=== PATIENT | male | born 1950 | race Caucasian/White ===

== ENCOUNTER 2016-05-10 16:53 | Inpatient (IN) | payer OTHER, MEDICARE ==
[~2016-05-10] VITALS: Ht 165.1 cm; Wt 112.7 kg
[~2016-05-10 16:53] MED LIST: 1-ME1LIQ PO; ALPR0.5T3 PO; ASPI1POW PO; ATOR40TA PO; CITA20TA4 PO; CLON.1 PO; DOXA1TAB65 PO; FLUT50SP EACH NARE; GLIP1TAB18 PO; GLUC1000 PO; HYDR-3129 PO; LEVEMIR SQ; LOSA100T PO; MAGN400 PO; MEDR4PAK3 PO; MORP30SU PO; NEUR800T PO; NITR0.4S SL; PLAV75TA PO; POTA10IN2 PO; PRIL40CA PO; TEMA15 PO
[2016-05-10] MEDS ORDERED: SODIUM CHLORIDE 0.9% FLUSH 10 ML FLUSH IVF PRN (17:15)
[2016-05-10] MEDS ORDERED: SODIUM CHLORID 0.9% 500 ML INJ 500 ML IV ONE (17:15)
--- NOTE | 2016-05-10 17:42 | PD ---
HPI Chief Complaint: syncope Time Seen by Provider: 17:03 Travel History International Travel<30 days: No Contact w/Intl Traveler<30days: No Traveled to known affect area: No History of Present Illness HPI And 65-year-old male came to the emergency room brought by EMS after syncopal episode at the [facility]. Patient says that he has been feeling weak for past few days. Today went to see his doctor the [facility] and was barely able to make it to the nurse's desk when he passed out. His blood pressure was 60 systolic. When EMS arrived he was awake and answering questions but the blood pressure was low. They gave him about 500 cc of IV fluid bolus and just prior to coming to the ER the blood pressure was 105 systolic. No history of chest pain or headache. Patient denies hitting his head. Patient says he has history of lower back pain in his lower back is currently hurting. He also had a stress test done last week by his asset administrator Dr. Pedroza and failed his stress test. He is scheduled for a cardiac catheterization tomorrow. [facility] Past Medical History Narrative Medical List of his past medical, surgical, social and family history was reviewed from the nursing note. Arthritis: Yes (R ankle, R knee, R shoulder, lower back, and neck) Asthma: No Blood Disorders: No Anxiety: Yes (Was taking Xanax (but not for last 3 weeks)) Depression: Yes Heart Rhythm Problems: No Cancer: No Cardiac Catheterization: Yes Cardiovascular Problems: Yes High Cholesterol: Yes Chest Pain: No Congestive Heart Failure: No COPD: No Cerebrovascular Accident: Yes Coronary Artery Disease: Yes Diabetes: Yes Diminished Hearing: No Endocrine: Yes Gastrointestinal Disorders: No GERD: No Glaucoma: No Genitourinary: Yes Hepatitis: No Hiatal Hernia: No Hypertension: Yes Immune Disorder: No Implanted Vascular Access Dvce: Yes Kidney Stones: Yes (Kidney stones in the 80's) Musculoskeletal: Yes Neurologic: No Psychiatric: Yes Reproductive: No Respiratory: Yes Integumentary: No Immunizations Current: Yes Myocardial Infarction: Yes Renal Failure: No Sleep Apnea: Yes (has Bipap but does not wear it) Thyroid Disease: No Ulcer: Yes (Stomach ulcer (in the 80's)) Past Surgical History Abdominal Surgery: Yes (Part of liver removed, HERNIA) Body Medical Devices: Stents 2008, 2014 LAD Cardiac Surgery: Yes Cholecystectomy: Yes Coronary Stent: Yes (X5) Ear Surgery: No Endocrine Surgery: No Eye Surgery: No Genitourinary Surgery: No Gynecologic Surgery: No Oral Surgery: No Thoracic Surgery: No Other Surgery: Yes Social History Alcohol Use: Yes (OCC BEER) Tobacco Use: No Substance Use: No Allergies-Medications (Allergen,Severity, Reaction): Coded Allergies: Onion (Verified Allergy, Severe, 06/15/15) Lisinopril (Verified Adverse Reaction, Severe, cough, 06/15/15) Comments List of his allergies reviewed from the nursing note. Reported Meds & Prescriptions Reported Meds & Active Scripts Active Reported Glipizide ER (Glipizide) 5 Mg Beth 5 Mg PO AC DINNER Take with breakfast or first main meal of the day. Bc Fast Pain Relief Powder (Jsjwjaa-Tkmqqxxogrhz-Byfzvsse Powder) 650-195-33.3 Mg Powderpack 1 Pkt PO DAILY Levemir Inj (Insulin Detemir) 1,000 unit/ 10 ML Vial 40 Units SQ HS Do not mix with any other Insulin. Humalog Inj (Insulin Human Lispro) 1,000 Unit/10 Ml Vial 10 Units SQ ACHS PRN Flonase Nasal [place] (Fluticasone Nasal [place]) 50 Mcg/Act [place] 1 [place] EACH NARE BID PRN Metformin (Metformin HCl) 1,000 Mg Tab 1,000 Mg PO BIDPC With meals Potassium Chloride Microencaps 10 Meq Tab 10 Meq PO TID Lasix (Furosemide) 80 Mg Tab 80 Mg PO AC BREAKFAST Bumex (Bumetanide) 2 Mg Tab 2 Mg PO BID Coreg (Carvedilol) 6.25 Mg Tab 6.25 Mg PO BID Atorvastatin (Atorvastatin Calcium) 40 Mg Tab 40 Mg PO HS Alprazolam 0.5 Mg Tab 0.5 Mg PO BID PRN Clonidine (Clonidine HCl) 0.1 Mg Tab 0.1 Mg PO TID Amlodipine (Amlodipine Besylate) 10 Mg Tab 10 Mg PO HS Citalopram (Citalopram Hydrobromide) 20 Mg Tab 20 Mg PO HS Plavix (Clopidogrel Bisulfate) 75 Mg Tab 75 Mg PO HS Doxazosin (Doxazosin Mesylate) 2 Mg Tab 2 Mg PO HS Gabapentin 800 Mg Tab 800 Mg PO TID [place] (Hydrocodone-Acetaminophen) 10-325 Mg Tab 1 Tab PO QID PRN Losartan (Losartan Potassium) 100 Mg Tab 100 Mg PO HS Nitroglycerin SL (Nitroglycerin) 0.4 Mg Subl 0.4 Mg SL DIRECTED PRN ONE TABLET UNDER THE TONGUE NEEDED FOR CHEST PAIN, MAY REPEAT EVERY FIVE MINUTES FOR A TOTAL OF 3 DOSES OR CALL 911 IF NO RELIEF Omeprazole 40 Mg Cap 40 Mg PO HS Restoril (Temazepam) 30 Mg Cap 30 Mg PO HS PRN Voltaren Topical (Diclofenac Topical) 1% Gel 1 Applic TOPICAL DAILY PRN Ms Contin (Morphine Sulfate) 30 Mg Tab 30 Mg PO Q8H Donepezil 5 Mg Tab 5 Mg PO HS Lasix (Furosemide) 40 Mg Tab 40 Mg PO AC LUNCH Narrative Medication List of his home medications reviewed from the nursing note. Review of Systems Except as stated in HPI: all other systems reviewed are Neg Physical Exam Narrative GENERAL: Awake, alert, obese, moderate distress SKIN: Focused skin assessment warm/dry. Pale HEAD: Atraumatic. Normocephalic. EYES: Pupils equal and round. No scleral icterus. No injection or drainage. ENT: No nasal bleeding or discharge. Mucous membranes pink and moist. NECK: Trachea midline. No JVD. CARDIOVASCULAR: Regular rate and rhythm. No murmur appreciated. RESPIRATORY: No accessory muscle use. Clear to auscultation. Breath sounds equal bilaterally. GASTROINTESTINAL: Abdomen soft, non-tender, nondistended. Hepatic and splenic margins not palpable. MUSCULOSKELETAL: No obvious deformities. No clubbing. No cyanosis. No edema. NEUROLOGICAL: Awake and alert. No obvious cranial nerve deficits. Motor grossly within normal limits. Normal speech. PSYCHIATRIC: Appropriate mood and affect; insight and judgment normal. Data Data Last Documented VS Vital Signs Date Time Temp Pulse Resp B/P Pulse Ox O2 Delivery O2 Flow Rate FiO2 05/10/16 18:04 66 18 95 Nasal Cannula 2 05/10/16 18:04 104/58 05/10/16 18:01 98.1 Orders Electrocardiogram (05/10/16 17:03) Basic Metabolic Panel (Bmp) (05/10/16 17:03) Ckmb (Isoenzyme) Profile (05/10/16 17:03) Complete Blood Count With Diff (05/10/16 17:03) Magnesium (Mg) (05/10/16 17:03) Prothrombin Time / Inr (Pt) (05/10/16 17:03) Act Partial Throm Time (Ptt) (05/10/16 17:03) Troponin I (05/10/16 17:03) Chest, Single Ap (05/10/16 17:03) Ecg Monitoring (05/10/16 17:03) Bilateral Bp Monitoring (05/10/16 17:03) Iv Access Insert/Monitor (05/10/16 17:03) Oximetry (05/10/16 17:03) Oxygen Administration (05/10/16 17:03) Sodium Chloride 0.9% Flush (Ns Flush) (05/10/16 17:15) Ct Abd/Pel W/O Iv Contrast (05/10/16 ) Sodium Chlorid 0.9% 500 Ml Inj (Ns 500 M (05/10/16 17:15) Ct Brain W/O Iv Contrast(Rout) (05/10/16 ) Urinalysis - C+S If Indicated (05/10/16 17:03) Admit Order (Ed Use Only) (05/10/16 18:40) Labs Laboratory Tests Test 05/10/16 17:10 White Blood Count 10.5 TH/MM3 Red Blood Count 3.49 MIL/MM3 Hemoglobin 9.9 GM/DL Hematocrit 29.2 % Mean Corpuscular Volume 83.5 FL Mean Corpuscular Hemoglobin 28.4 PG Mean Corpuscular Hemoglobin 34.1 % Concent Red Cell Distribution Width 17.3 % Platelet Count 233 TH/MM3 Mean Platelet Volume 8.6 FL Neutrophils (%) (Auto) 67.5 % Lymphocytes (%) (Auto) 15.7 % Monocytes (%) (Auto) 8.0 % Eosinophils (%) (Auto) 8.1 % Basophils (%) (Auto) 0.7 % Neutrophils # (Auto) 7.1 TH/MM3 Lymphocytes # (Auto) 1.6 TH/MM3 Monocytes # (Auto) 0.8 TH/MM3 Eosinophils # (Auto) 0.9 TH/MM3 Basophils # (Auto) 0.1 TH/MM3 CBC Comment DIFF FINAL Differential Comment Prothrombin Time 10.7 SEC Prothromb Time International 1.0 RATIO Ratio Activated Partial 22.6 SEC Thromboplast Time Sodium Level 140 MEQ/L Potassium Level 3.6 MEQ/L Chloride Level 100 MEQ/L Carbon Dioxide Level 29.9 MEQ/L Anion Gap 10 MEQ/L Blood Urea Nitrogen 20 MG/DL Creatinine 1.76 MG/DL Estimat Glomerular Filtration 39 ML/MIN Rate Random Glucose 67 MG/DL Calcium Level 7.8 MG/DL Magnesium Level 1.1 MG/DL Total Creatine Kinase 99 U/L Troponin I LESS THAN 0.02 NG/ML MDM Medical Decision Making Medical Screen Exam Complete: Yes Emergency Medical Condition: Yes Medical Record Reviewed: Yes Interpretation(s) Twelve-lead EKG was reviewed by me. Normal sinus rhythm, left axis deviation, right bundle branch block, PVC. Heart rate of 68 bpm. Differential Diagnosis Intracranial bleed, arrhythmia, AAA, Narrative Course 6:45 PM blood test results of back and within acceptable limit except for his hemoglobin and hematocrit which is slightly low. CAT scan of his abdomen and head are within normal limits. I would like to admit him for syncope. I discussed this with the hospitalist was accepted the case. Procedures EKG Prior to Arrival: No Diagnosis Primary Impression: Syncope and collapse Admitting Information Admitting Physician Requests: Admit Eder Carmen MD May 10, 2016 17:42
[2016-05-10 17:43] LABS: AUTOMATED NEUTROPHIL # 7.1 TH/MM3 (1.8-7.7); BASOPHIL # 0.1 TH/MM3 (0-0.2); BASOPHIL % 0.7 % (0.0-2.0); EOSINOPHIL # 0.9 TH/MM3 (0-0.4); EOSINOPHIL % 8.1 % (0.0-4.0); HEMATOCRIT 29.2 % (39.0-51.0); HEMO FLAGS DIFF FINAL; LYMPH % 15.7 % (9.0-44.0); LYMPHOCYTE # 1.6 TH/MM3 (1.0-4.8); MEAN CELL VOLUME 83.5 FL (80.0-100.0); MEAN CORPUSCULAR HEMOGLOBIN 28.4 PG (27.0-34.0); MEAN CORPUSCULAR HGB CONC 34.1 % (32.0-36.0); NEUT % 67.5 % (16.0-70.0); PLATELET COUNT 233 TH/MM3 (150-450); RED BLOOD COUNT 3.49 MIL/MM3 (4.50-5.90); RED CELL DISTRIBUTION WIDTH 17.3 % (11.6-17.2); WHITE BLOOD COUNT 10.5 TH/MM3 (4.0-11.0)
--- NOTE | 2016-05-10 17:47 | RADRPT ---
EXAM DATE/TIME: 05/10/2016 17:12 [facility] COMPARISON: CHEST SINGLE AP, June 15, 2015, 21:42. INDICATIONS : Chest pain. MEDICAL HISTORY : Cerebrovascular disease. SURGICAL HISTORY : Cardiac stents placement ENCOUNTER: Initial ACUITY: 1 day PAIN SCORE: 6/10 LOCATION: Bilateral chest FINDINGS: A single view of the chest demonstrates the lungs to be symmetrically aerated without evidence of mas s, infiltrate or effusion. The cardiomediastinal contours are unremarkable. Osseous structures are intact. CONCLUSION: 1. The pulmonary parenchyma is clear. Exam is stable compared to previous. Santos Allen MD on May 10, 2016 at 17:44 Board Certified Radiologist. This report was verified electronically.
[2016-05-10 17:57] LABS: APTT (PATIENT) 22.6 SEC (24.3-30.1); PROTHROMBIN TIME - PATIENT 10.7 SEC (9.8-11.6)
[2016-05-10] MEDS ORDERED: METO100T PO (17:57)
[2016-05-10] MEDS ORDERED: FURO1TAB60 PO (17:57)
[2016-05-10] MEDS ORDERED: HYDR-3366 PO (17:57)
[2016-05-10] MEDS ORDERED: CITA20TA4 PO (17:57)
[2016-05-10] MEDS ORDERED: DICL1GEL TOPICAL (17:57)
[2016-05-10] MEDS ORDERED: MS C30TA PO (17:57)
[2016-05-10] MEDS ORDERED: NITR1SUB3 SL (17:57)
[2016-05-10] MEDS ORDERED: GABA800T PO (17:57)
[2016-05-10] MEDS ORDERED: CLON.1T T-DERMAL (17:57)
[2016-05-10] MEDS ORDERED: DOXA1TAB35 PO (17:57)
[2016-05-10] MEDS ORDERED: LOSA100T PO (17:57)
[2016-05-10] MEDS ORDERED: DONE5TAB7 PO (17:57)
[2016-05-10] MEDS ORDERED: OMEP40CA2 PO (17:57)
[2016-05-10] MEDS ORDERED: AMLO10TA2 PO (17:57)
[2016-05-10] MEDS ORDERED: PLAV75TA29 PO (17:57)
[2016-05-10] MEDS ORDERED: REST30CA PO (17:57)
[2016-05-10 18:01] VITALS: BP 102/57; PULSE 67; RESP 18; TEMP 98.1; O2SAT 90
[2016-05-10 18:04] VITALS: BP 104/58; PULSE 67; RESP 18; O2SAT 95; O2SAT 97
[2016-05-10] MEDS ORDERED: ALPR0.5T3 PO (18:12)
[2016-05-10] MEDS ORDERED: CLON0.1T PO (18:12)
[2016-05-10 18:15] LABS: ANION GAP 10 MEQ/L (5-15); BICARBONATE 29.9 MEQ/L (21.0-32.0); BLOOD UREA NITROGEN 20 MG/DL (7-18); CHLORIDE 100 MEQ/L (98-107); GLOMERULAR FILTRATION RATE 39 ML/MIN (>89); MAGNESIUM 1.1 MG/DL (1.5-2.5); POTASSIUM 3.6 MEQ/L (3.5-5.1); SODIUM (NA) 140 MEQ/L (136-145)
[2016-05-10 18:18] LABS: CREATINE KINASE 99 U/L (39-308)
--- NOTE | 2016-05-10 18:18 | RADRPT ---
EXAM DATE/TIME: 05/10/2016 17:44 [facility] COMPARISON: CT BRAIN W/O CONTRAST, May 06, 2015, 2:57. INDICATIONS : Syncope. RADIATION DOSE: 52.56 CTDIvol (mGy) MEDICAL HISTORY : Cardiovascular disease. Cerebrovascular disease. Hypertension. SURGICAL HISTORY : Cholecystectomy. ENCOUNTER: Initial ACUITY: 1 day PAIN SCALE: 0/10 LOCATION: cranial TECHNIQUE: Multiple contiguous axial images were obtained of the head. Using automated exposure control and adj ustment of the mA and/or kV according to patient size, radiation dose was kept as low as reasonably a chievable to obtain optimal diagnostic quality images. FINDINGS: There is no evidence for intracranial hemorrhage, mass effect, mass lesions, edema, or extra-axial fl uid collections. The visualized bony structures appear intact. The ventricles are normal size for t he patient's age. There are no signs of acute infarction for technique. CONCLUSION: Unremarkable study. Colt Pedersen MD on May 10, 2016 at 18:15 Board Certified Radiologist. This report was verified electronically.
[2016-05-10] MEDS ORDERED: FURO1TAB61 PO (18:23)
[2016-05-10] MEDS ORDERED: ATOR40TA16 PO (18:23)
[2016-05-10] MEDS ORDERED: BUME1TAB28 PO (18:23)
[2016-05-10] MEDS ORDERED: CARV6.25 PO (18:23)
--- NOTE | 2016-05-10 18:24 | RADRPT ---
EXAM DATE/TIME: 05/10/2016 17:47 [facility] COMPARISON: No previous studies available for comparison. INDICATIONS : Abdomen pain. ORAL CONTRAST: No oral contrast ingested. RADIATION DOSE: 26.06 CTDIvol (mGy) MEDICAL HISTORY : Cardiovascular disease. Cerebrovascular disease. Hypertension. SURGICAL HISTORY : Cholecystectomy. ENCOUNTER: Initial ACUITY: 1 day PAIN SCALE: 6/10 LOCATION: Bilateral abdomen TECHNIQUE: Volumetric scanning of the abdomen and pelvis was performed. Using automated exposure control and ad justment of the mA and/or kV according to patient size, radiation dose was kept as low as reasonably achievable to obtain optimal diagnostic quality images. FINDINGS: CT Abdomen: The liver, spleen, pancreas, kidneys, left adrenal are unremarkable. Approximate 1.1 cm n odule is present in the right adrenal gland most likely an adenoma low attenuating. Coronary artery c alcifications are seen typically seen with CAD and need to be evaluated clinically. Evidence for prio r granulomatous exposure with calcified granulomas in the liver and spleen. There is no evidence for any appreciable pathological adenopathy, free fluid, or bowel obstruction. Chronic vascular calcific ations are present involving the aorta, iliac arteries without any significant stenosis or aneurysmal dilatations for technique. There is evidence for prior cholecystectomy. CT pelvis: There is no evidence for mass, abscess formation, or any significant adenopathy within the pelvis. The prostate gland is inhomogeneous and measures 5.2 x 5.4 cm in AP and transverse diameters and nonspecific. There is moderate amount of stool throughout the colon. Approximate 1.8 cm lymph no de is present in the right external iliac chain most likely benign. There is an approximate 6.2 cm li lottie in the inner thigh on the right. CONCLUSION: 1. Right adrenal nodule most likely an adenoma. 2. Lipoma in the inner thigh on the right. Colt Pedersen MD on May 10, 2016 at 18:16 Board Certified Radiologist. This report was verified electronically.
[2016-05-10] MEDS ORDERED: METF1000 PO (18:27)
[2016-05-10] MEDS ORDERED: POTA10TA38 PO (18:27)
[2016-05-10] MEDS ORDERED: LEVEMIR SQ (18:30)
[2016-05-10] MEDS ORDERED: FLUT1SPR5 EACH NARE (18:30)
[2016-05-10] MEDS ORDERED: HUMALOG SQ (18:30)
[2016-05-10] MEDS ORDERED: BC FPOW12 PO (18:31)
[2016-05-10] MEDS ORDERED: GLIP1TAB49 PO (18:33)
[2016-05-10] MEDS ORDERED: NALOXONE HCL 0.4 MG/ML AMP IV PRN (19:00)
[2016-05-10] MEDS ORDERED: ACETAMINOPHEN 325 MG TAB PO PRN (19:00)
[2016-05-10] MEDS ORDERED: SODIUM CHLOR 0.9% 1000 ML INJ 1,000 ML IV SCH (19:00)
[2016-05-10 19:30] VITALS: BP 107/56; PULSE 69; RESP 18; O2SAT 96
[2016-05-10] MEDS ORDERED: MAGNESIUM SULFATE 1 GM PREMIX 100 ML IV ONE (21:00)
[2016-05-10] MEDS: SODIUM CHLORIDE 0.9% FLUSH 10 ML FLUSH IV FLUSH SCH (21:00)
[2016-05-10 21:10] VITALS: BP 120/58; PULSE 66; RESP 18; O2SAT 97
[2016-05-10] MEDS: MORPHINE SULFATE 4 MG/ML INJ IV PUSH PRN (21:16)
[2016-05-10] MEDS ORDERED: DEXTROSE 50% IN WATER 50 ML VIAL(D50) IV PUSH PRN (21:45)
[2016-05-10] MEDS ORDERED: GLUCAGON 1 MG/ML VIAL OTHER PRN (21:45)
[2016-05-10 21:48] LABS: BLOOD, URINE NEG (NEG); COMMENT (UR) CULT NOT INDICATED; CULTURE IF INDICATED CULT NOT INDICATED; GLUCOSE,URINE NEG (NEG); HYALINE CAST, URINE 4 /lpf (RARE); KETONE, URINE NEG (NEG); NITRITE,URINE NEG (NEG); SQUAMOUS EPITHELIAL CELL URINE <1 /hpf (0-5); URINE COLOR LIGHT-YELLOW (YELLW/STRAW)
[2016-05-10 22:46] VITALS: BP 115/63; PULSE 69; RESP 20; TEMP 97.4; O2SAT 95
[2016-05-11] VITALS (8 sets, daily range): BP systolic 84–171; BP diastolic 58–85; PULSE 72–98; RESP 18–20; TEMP 97.5–98.4; O2SAT 92–100
--- NOTE | 2016-05-11 00:02 | HHI.HP ---
[facility] [place] [place] Physician Wali Pinon M.D. Admission Diagnosis syncope, hypotension Diagnoses: (1) Syncope and collapse (2) Anemia (3) Hypomagnesemia (4) Diabetes mellitus, type 2 (5) Renal insufficiency Chief Complaint: Dizziness and near syncope Travel History International Travel<30 Days: No Contact w/Intl Traveler <30 Da: No Traveled to Known Affected Are: No History of Present Illness Late entry on 05/11/2016 at 0002 for a visit done on 05/10/2016 at 2347. Mr. Bui is a 65 year-old male with a history of CAD with angioplasty and coronary stents, [place], morbid obesity, anxiety, depression, peptic ulcer disease, CVA, AGUSTIN, diabetes mellitus, hypertension, nephrolithiasis, dyslipidemia, osteoarthritis, chronic low back pain, insomnia, and mild memory impairment who underwent a recent nuclear stress test showing significant inferolateral ischemia and came to the hospital for evaluation after a syncopal episode at the [place] clinic 05/10/2016. He is scheduled to have outpatient cardiac catheterization by Dr. Pedroza tomorrow, 05/11/2016. Labs show acute renal insufficiency, anemia, and hypomagnesemia. Chest x-ray shows pulmonary parenchyma is clear with stable exam compared to previous. Abdomen pelvis CT shows right adrenal nodule likely an adenoma and lipoma in the inner right thigh. Head CT is an unremarkable study. The patient is seen in the CDU. He states that he is been feeling lightheaded for about one month. He states that he was feeling little bit better on 2016, showered, and went to the pain management doctor's office. While he was there, he felt dizzy, became weak, and nearly passed out. The staff at the pain management office had to hold him up at the animal technician desk while they awaited EMS. Denies any associated chest pain, chest tightness, shortness of breath, or nausea with this episode. He had an episode last week where he was walking through the kitchen and woke up on the floor and has no recollection on how he got there. He did not seek medical care for this. He also reports that he has been having nausea and vomiting over the last month - 2 or 3 nights ago went to [employer] and had 2 sit in the parking lot for one hour because of multiple episodes of vomiting- emesis is bilious in color; no black or red vomitus; symptoms resolved spontaneously - states he's vomited several times over the last 30 days; feels like his food gets stuck in epigastric area and this is followed by vomiting; he also reports bright red blood in stool - most recently on Tuesday - he noted blood in toilet bowl and on feces - has history of chronic constipation - has never had a colonoscopy; has a family history of colon cancer in his grandmother. Reports recent poor appetite; he is due to have gastric sleeve surgery with Dr. Lake so he has been trying to reduce dietary intake in preparation for surgery. He continues to take Levemir 40 units at bedtime despite changes in dietary intake and reports he was instructed to take Humalog 10 units subcutaneous as needed for blood sugars greater than 160. We will have the certified lactation educator meet with him. He also reports vision is changing when lying down - has cataracts - sees two dots/floating in front of eyes - relates it to diabetes - has to go see beveller operator - needs to follow up as an outpatient; is aware. He states he was in ICU at [facility] ([place], [place]) for CHF on January 22 through February 16. He reports he gained 42 pounds in 6 weeks. He denies being on a ventilator or BiPAP. He states that May 04 is the last time he saw Dr. Pedroza. During examination is noted that his right leg has swelling more than his left left - he states ultrasound at [facility] was negative for DVT. He denies diarrhea, pain or burning with urination but reports decreased urinary output; denies history of renal problems. He reports a history of prostate CA approximately 15 years ago - treated in [place] - radiation seeds placed Denies thyroid problems. . Review of Systems Except as stated in HPI: all other systems reviewed are Neg Past Family Social History Past Medical History Coronary artery disease with multiple bare-metal stents placed 05/01/2015 and history of angioplasty (2011) and 2 stents placed 2016 Morbid obesity Anxiety and depression Myocardial infarction 01/2012 Peptic ulcer disease in 1979 CVA Obstructive sleep apnea Diabetes mellitus Hypertension Nephrolithiasis Dyslipidemia Osteoarthritis Chronic low back pain Insomnia Mild memory impairment Prostate CA 15 years ago - treated in [place] - radiation seeds placed . Past Surgical History Partial hepatic resection - "shaved" Cholecystectomy Umbilical hernia repair Ankle, knee, and shoulder surgery Epidural steroid injections of the lumbosacral spine Tonsillectomy . Reported Medications Reported Meds & Active Scripts Active Reported Glipizide ER (Glipizide) 5 Mg Beth 5 Mg PO AC DINNER Take with breakfast or first main meal of the day. Bc Fast Pain Relief Powder (Zdbpwvi-Qhmymyilvdje-Pvjepvsk Powder) 650-195-33.3 Mg Powderpack 1 Pkt PO DAILY Levemir Inj (Insulin Detemir) 1,000 unit/ 10 ML Vial 40 Units SQ HS Do not mix with any other Insulin. Humalog Inj (Insulin Human Lispro) 1,000 Unit/10 Ml Vial 10 Units SQ ACHS PRN Flonase Nasal Mcconnell (Fluticasone Nasal Mcconnell) 50 Mcg/Act Mcconnell 1 Mcconnell EACH NARE BID PRN Metformin (Metformin HCl) 1,000 Mg Tab 1,000 Mg PO BIDPC With meals Potassium Chloride Microencaps 10 Meq Tab 10 Meq PO TID Lasix (Furosemide) 80 Mg Tab 80 Mg PO AC BREAKFAST Bumex (Bumetanide) 2 Mg Tab 2 Mg PO BID Coreg (Carvedilol) 6.25 Mg Tab 6.25 Mg PO BID Atorvastatin (Atorvastatin Calcium) 40 Mg Tab 40 Mg PO HS Alprazolam 0.5 Mg Tab 0.5 Mg PO BID PRN Clonidine (Clonidine HCl) 0.1 Mg Tab 0.1 Mg PO TID Amlodipine (Amlodipine Besylate) 10 Mg Tab 10 Mg PO HS Citalopram (Citalopram Hydrobromide) 20 Mg Tab 20 Mg PO HS Plavix (Clopidogrel Bisulfate) 75 Mg Tab 75 Mg PO HS Doxazosin (Doxazosin Mesylate) 2 Mg Tab 2 Mg PO HS Gabapentin 800 Mg Tab 800 Mg PO TID [place] (Hydrocodone-Acetaminophen) 10-325 Mg Tab 1 Tab PO QID PRN Losartan (Losartan Potassium) 100 Mg Tab 100 Mg PO HS Nitroglycerin SL (Nitroglycerin) 0.4 Mg Subl 0.4 Mg SL DIRECTED PRN ONE TABLET UNDER THE TONGUE NEEDED FOR CHEST PAIN, MAY REPEAT EVERY FIVE MINUTES FOR A TOTAL OF 3 DOSES OR CALL 911 IF NO RELIEF Omeprazole 40 Mg Cap 40 Mg PO HS Restoril (Temazepam) 30 Mg Cap 30 Mg PO HS PRN Voltaren Topical (Diclofenac Topical) 1% Gel 1 Applic TOPICAL DAILY PRN Ms Contin (Morphine Sulfate) 30 Mg Tab 30 Mg PO Q8H Donepezil 5 Mg Tab 5 Mg PO HS Lasix (Furosemide) 40 Mg Tab 40 Mg PO AC LUNCH . Allergies: Coded Allergies: Onion (Verified Allergy, Severe, 06/15/15) Lisinopril (Verified Adverse Reaction, Severe, cough, 06/15/15) Active Ordered Medications Current Medications Sodium Chloride 2 ml 2 ml UNSCH PRN IVF FLUSH AFTER USING IV ACCESS; Start 05/10 at 17:15; Stop 05/10/16 at 19:11; Status DC Sodium Chloride (NS 500 ml Inj) 500 ml @ 500 mls/hr BOLUS ONCE IV Last administered on 05/10/16 17:20; Start 05/10/16 at 17:15; Stop 05/10/16 at 18:14; Status DC Sodium Chloride (NS Flush) 2 ml UNSCH PRN IV FLUSH FLUSH AFTER USING IV ACCESS ; Start 05/10/16 at 19:00 Sodium Chloride (NS Flush) 2 ml BID IV FLUSH Last administered on 05/10/16 21: 00; Start 05/10/16 at 21:00 Acetaminophen (Tylenol) 650 mg Q4H PRN PO TEMP > 100.4; Start 05/10/16 at 19:00 Ondansetron HCl (Zofran Inj) 4 mg Q6H PRN IVP NAUSEA OR VOMITING; Start at 19:00 Naloxone HCl 0.4 mg 0.4 mg UNSCH PRN IV SEE LABEL COMMENTS; Start 05/10/16 at 19 :00 Sodium Chloride 1,000 ml @ 84 mls/hr [id number] IV Last administered on 05/10/16 19:15; Start 05/10/16 at 19:00 Magnesium Sulfate/ Dextrose (Magnesium Sulfate 1 Gm Premix) 100 ml @ 100 mls/ hr ONCE ONCE IV Last administered on 05/10/16 21:16; Start 05/10/16 at 21:00; Stop 05/10/16 at 21:59; Status DC Morphine Sulfate (Morphine Inj) 2 mg Q3H PRN IV PUSH PAIN >5 Last administered on 05/10/16t 21:16; Start 05/10/16 at 21:00 Dextrose (D50w (Vial) Inj) 25 ml UNSCH PRN IV PUSH HYPOGLYCEMIA-SEE COMMENTS; Start 05/10/16 at 21:45 Glucagon (Glucagon Inj) 1 mg UNSCH PRN OTHER HYPOGLYCEMIA-SEE COMMENTS; Start 05/10/16 at 21:45 Insulin Aspart (NovoLOG SUPPLEMENTAL SCALE) 1 ACHS SLIDING SCALE SQ ; Start 05/11/16 at 07:00 . Family History Father age 47 of [place] Mother age 84 COPD Grandmother with colon CA . Social History Tobacco: Denies ever smoking Alcohol: Drinks rare occasional beer Illicit Drugs: Denies . Physical Exam Vital Signs Vital Signs Date Time Temp Pulse Resp B/P Pulse Ox O2 Delivery O2 Flow Rate FiO2 05/10/16 22:46 97.4 69 20 115/63 95 05/10/16 22:01 18 05/10/16 21:10 66 18 120/58 97 Nasal Cannula 2 05/10/16 19:30 69 18 107/56 96 Nasal Cannula 2 05/10/16 18:04 66 18 95 Nasal Cannula 2 05/10/16 18:04 18 95 Nasal Cannula 2 05/10/16 18:04 67 18 104/58 97 Nasal Cannula 2 05/10/16 18:04 95 Nasal Cannula 2 05/10/16 18:01 98.1 67 18 102/57 90 Physical Exam GENERAL: This is a morbidly obese male patient, in no apparent distress. SKIN: No ecchymoses. Cool and dry. There is a bandage on his right lower extremity that was removed for visual inspection. The patient states he has a wound there and his home health nurse has been dressing it but I am unable to see it despite close inspection. HEAD: Atraumatic. Normocephalic. EYES: No scleral icterus. No injection or drainage. ENT: Nose without bleeding, purulent drainage. NECK: Trachea midline. No JVD or lymphadenopathy. CARDIOVASCULAR: Regular rate and rhythm without murmurs, gallops, or rubs. right leg has swelling slightly more than his left left. RESPIRATORY: Clear to auscultation. Breath sounds equal bilaterally. No wheezes , rales, or rhonchi. GASTROINTESTINAL: Abdomen soft, non-tender, nondistended. No guarding. MUSCULOSKELETAL: Extremities without clubbing, cyanosis, or edema. No calf tenderness. NEUROLOGICAL: Awake and alert. Motor and sensory grossly within normal limits. Normal speech. . Laboratory Laboratory Tests Test 05/10/16 05/10/16 17:10 21:10 White Blood Count 10.5 Red Blood Count 3.49 Hemoglobin 9.9 Hematocrit 29.2 Mean Corpuscular Volume 83.5 Mean Corpuscular Hemoglobin 28.4 Mean Corpuscular Hemoglobin 34.1 Concent Red Cell Distribution Width 17.3 Platelet Count 233 Mean Platelet Volume 8.6 Neutrophils (%) (Auto) 67.5 Lymphocytes (%) (Auto) 15.7 Monocytes (%) (Auto) 8.0 Eosinophils (%) (Auto) 8.1 Basophils (%) (Auto) 0.7 Neutrophils # (Auto) 7.1 Lymphocytes # (Auto) 1.6 Monocytes # (Auto) 0.8 Eosinophils # (Auto) 0.9 Basophils # (Auto) 0.1 CBC Comment DIFF FINAL Differential Comment Prothrombin Time 10.7 Prothromb Time International 1.0 Ratio Activated Partial 22.6 Thromboplast Time Sodium Level 140 Potassium Level 3.6 Chloride Level 100 Carbon Dioxide Level 29.9 Anion Gap 10 Blood Urea Nitrogen 20 Creatinine 1.76 Estimat Glomerular Filtration 39 Rate Random Glucose 67 Calcium Level 7.8 Magnesium Level 1.1 Total Creatine Kinase 99 Troponin I LESS THAN 0.02 Urine Color LIGHT-YELLOW Urine Turbidity CLEAR Urine pH 5.0 Urine Specific [place] 1.008 Urine Protein NEG Urine Glucose (UA) NEG Urine Ketones NEG Urine Occult Blood NEG Urine Nitrite NEG Urine Bilirubin NEG Urine Urobilinogen LESS THAN 2.0 Urine Leukocyte Esterase TRACE Urine WBC 2 Urine Squamous Epithelial <1 Cells Urine Hyaline Casts 4 Microscopic Urinalysis Comment CULT NOT INDICATED Result Diagram: 05/10/16 1710 05/10/16 171 Imaging Last Impressions Chest X-Ray 05/10/16 1703 Signed Impressions: Service Date/Time: Tuesday, May 10, 2016 17:12 - CONCLUSION: 1. The pulmonary parenchyma is clear. Exam is stable compared to previous. Santos Allen MD Head CT 05/10/16 0000 Signed Impressions: Service Date/Time: Tuesday, May 10, 2016 17:44 - CONCLUSION: Unremarkable study. Colt Pedersen MD Abdomen/Pelvis CT 05/10/16 0000 Signed Impressions: Service Date/Time: Tuesday, May 10, 2016 17:47 - CONCLUSION: 1. Right adrenal nodule most likely an adenoma. 2. Lipoma in the inner thigh on the right. Colt Pedersen MD . Assessment and Plan Problem List: (1) Syncope and collapse ICD Code: R55 Status: Acute (2) Anemia ICD Code: D64.9 Status: Acute (3) Hypomagnesemia ICD Code: E83.42 Status: Acute (4) Diabetes mellitus, type 2 ICD Code: E11.9 Status: Chronic (5) Renal insufficiency ICD Code: N28.9 Status: Acute Assessment and Plan Mr. Bui is a 65 year-old male with a history of CAD with coronary stents, [place], morbid obesity, anxiety, depression, peptic ulcer disease, CVA, AGUSTIN, diabetes mellitus, hypertension, nephrolithiasis, dyslipidemia, osteoarthritis, chronic low back pain, insomnia, and mild memory impairment who underwent a recent nuclear stress test showing significant inferolateral ischemia and came to the hospital for evaluation after a syncopal episode at the [place] clinic 05/10/2016. He is scheduled to have outpatient cardiac catheterization by Dr. Pedroza tomorrow, . Syncope likely due to GI loss/anemia - Consult cardiology - as pt was planned for cath as his workup for gastric sleeve surgery - 2-D echocardiogram to assess cardiac structure and function - Continuous cardiac telemetry to monitor for arrhythmias - Orthostatic blood pressure measurement Anemia - Hemoglobin 9.9 and hematocrit 29.2 - most recent labs are almost [id number] but this appears to be lower than prior trends - serial H&H q6h - consult gastroenterologyas patient is complaining of nausea/vomiting/ dysphagia symptoms with decreased oral intake. He also did have episodes of bright red blood per rectum. He never had colonoscopy or endoscopy as previously. Has family history of colon cancer. Hypomagnesemia, appears chronic - Magnesium 1.1 on admission and low on prior admissions - Magnesium will be replaced IV - Recheck magnesium level in a.m. and follow trends Type 2 diabetes mellitus - Initial blood glucose 67 likely from poor oral intake, and renal failure. Patient states that he was not taking his long-acting insulin for the past 3 days because of his acute illness. - Hold home diabetes medications for now - Accu-Cheks before meals and at bedtime with low-dose NovoLog sliding scale coverage - Protocol for treatment of hypoglycemia ordered - Consult certified lactation educator Acute renal insufficiency - BUN 20, creatinine 1.76, estimated GFR 39 (was 74 on 06/15/15 and normal on other prior visits) - Received normal saline at 500 cc per hour IV in ER - Hold metformin for contrast study to avoid further renal dysfunction - Repeat BMP in a.m. and follow trends in renal indices - Avoid nephrotoxins DVT prophylaxis - SCDs Written by Melina Avila, acting as scribe for Dr. Fox on 05/10/16 at 23:47. All or portions of this note were transcribed by scribe [Melina Avila]. I, Dr. Violet Fox personally performed the history, physical exam, and medical decision making; and confirmed the accuracy of the information in the transcribed note.[address] Violet Fox on 05/10/16 at 23:47. . Discussed Condition With ER physician, RN, Melina Avila May 11, 2016 00:02 Violet Fox MD May 11, 2016 07:27
[2016-05-11 02:34] LABS: AUTOMATED NEUTROPHIL # 5.8 TH/MM3 (1.8-7.7); BASOPHIL # 0.1 TH/MM3 (0-0.2); BASOPHIL % 0.8 % (0.0-2.0); EOSINOPHIL # 0.8 TH/MM3 (0-0.4); HEMO FLAGS DIFF FINAL; LYMPH % 19.1 % (9.0-44.0); LYMPHOCYTE # 1.8 TH/MM3 (1.0-4.8); MEAN CELL VOLUME 83.6 FL (80.0-100.0); MEAN CORPUSCULAR HEMOGLOBIN 27.8 PG (27.0-34.0); MEAN CORPUSCULAR HGB CONC 33.3 % (32.0-36.0); MONO % 8.1 % (0.0-8.0); PLATELET COUNT 202 TH/MM3 (150-450); RED BLOOD COUNT 3.47 MIL/MM3 (4.50-5.90); RED CELL DISTRIBUTION WIDTH 17.1 % (11.6-17.2); WHITE BLOOD COUNT 9.3 TH/MM3 (4.0-11.0)
[2016-05-11 02:47] LABS: BICARBONATE 29.6 MEQ/L (21.0-32.0); MAGNESIUM 1.2 MG/DL (1.5-2.5)
[2016-05-11] MEDS ORDERED: POTASSIUM CHLORIDE 25 MEQ EFFERVESCENT TAB PO ONE (03:45)
[2016-05-11] MEDS ORDERED: MAGNESIUM SULFATE 1 GM PREMIX 100 ML IV ONE (04:00)
[2016-05-11] MEDS: MORPHINE SULFATE 4 MG/ML INJ IV PUSH PRN ×3 (04:04→23:05)
[2016-05-11] MEDS: INSULIN ASPART SUPPLEMENTAL SCALE SQ SCH ×3 (06:11→20:46)
[2016-05-11] MEDS: SODIUM CHLOR 0.9% 1000 ML INJ 1,000 ML IV SCH ×2 (07:40→20:21)
[2016-05-11] MEDS ORDERED: ASPIRIN 325 MG TAB PO SCH (07:45)
[2016-05-11] MEDS ORDERED: DIAZEPAM 10 MG TAB PO SCH (07:45)
[2016-05-11] MEDS ORDERED: diphenhydrAMINE HCL 50 MG CAP PO SCH (07:45)
--- NOTE | 2016-05-11 07:57 | HHI.PR ---
Subjective Remarks Follow up for syncope, CAD, nausea/vomiting. The patient reports feeling well today, no acute events overnight. Denies any chest pain or shortness of breath. Denies any lightheadedness or syncopal episodes. Denies any nausea or vomiting. He believes the syncopal episode yesterday was related to hypoglycemia and hypotension. Going for heart cath today. Objective Vitals Vital Signs Date Time Temp Pulse Resp B/P Pulse Ox O2 Delivery O2 Flow Rate FiO2 05/11/16 07:51 97.8 79 18 125/58 97 05/11/16 03:56 97.5 72 20 137/66 95 05/11/16 02:36 73 05/10/16 22:46 97.4 69 20 115/63 95 05/10/16 22:01 18 05/10/16 21:10 66 18 120/58 97 Nasal Cannula 2 05/10/16 19:30 69 18 107/56 96 Nasal Cannula 2 05/10/16 18:04 66 18 95 Nasal Cannula 2 05/10/16 18:04 18 95 Nasal Cannula 2 05/10/16 18:04 67 18 104/58 97 Nasal Cannula 2 05/10/16 18:04 95 Nasal Cannula 2 05/10/16 18:01 98.1 67 18 102/57 90 I/O 05/10/16 05/10/16 05/10/16 05/11/16 05/11/16 05/11/16 07:00 15:00 23:00 07:00 15:00 23:00 Output Total 500 ml 600 ml Balance -500 ml -600 ml Output Urine Total 500 ml 600 ml # Voids 2 1 Result Diagram: 05/11/16 0157 05/11/16 0157 Imaging Last Impressions Chest X-Ray 05/10/16 1703 Signed Impressions: Service Date/Time: Tuesday, May 10, 2016 17:12 - CONCLUSION: 1. The pulmonary parenchyma is clear. Exam is stable compared to previous. Santos Allen MD Head CT 05/10/16 0000 Signed Impressions: Service Date/Time: Tuesday, May 10, 2016 17:44 - CONCLUSION: Unremarkable study. Colt Pedersen MD Abdomen/Pelvis CT 05/10/16 0000 Signed Impressions: Service Date/Time: Tuesday, May 10, 2016 17:47 - CONCLUSION: 1. Right adrenal nodule most likely an adenoma. 2. Lipoma in the inner thigh on the right. Colt Pedersen MD Objective Remarks GENERAL: Well-nourished, well-developed obese middle aged male patient in [facility]. SKIN: Warm and dry. No rash. HEENT: Normocephalic. Atraumatic.Pupils equal and round. No scleral icterus. No injection or drainage. Mucous membranes pink and moist. NECK: Supple. Trachea midline. CARDIOVASCULAR: Regular rate and rhythm. S1, S2 noted. No murmur appreciated. RESPIRATORY: No accessory muscle use. Clear to auscultation. Breath sounds equal bilaterally. GASTROINTESTINAL: Abdomen soft, non-tender, nondistended. Normoactive bowel sounds x4. MUSCULOSKELETAL: No obvious deformities. Extremities without clubbing, cyanosis , or edema. NEUROLOGICAL: Awake and alert. No obvious cranial nerve deficits. Motor grossly within normal limits. Normal speech. PSYCHIATRIC: Appropriate mood and affect; insight and judgment normal. Medications and IVs Current Medications Medications (Trade) Dose Ordered Sig/Michael Route Start Time Stop Time Status Last Admin (NS Flush) 2 ml UNSCH PRN IV FLUSH 05/10/16 19:00 (NS Flush) 2 ml BID IV FLUSH 05/10/16 21:00 05/11/16 09:00 (Tylenol) 650 mg Q4H PRN PO 05/10/16 19:00 (Zofran Inj) 4 mg Q6H PRN IVP 05/10/16 19:00 (Narcan Inj) 0.4 mg UNSCH PRN IV 05/10/16 19:00 (Morphine Inj) 2 mg Q3H PRN IV PUSH 05/10/16 21:00 05/11/16 04:04 (D50w (Vial) Inj) 25 ml UNSCH PRN IV PUSH 05/10/16 21:45 Glucagon 1 mg 1 mg UNSCH PRN OTHER 05/10/16 21:45 (NS 1000 ml Inj) 1,000 ml @ 100 mls/hr Q10H IV 05/11/16 07:40 05/16/16 07:39 Urinary Catheter: No Vascular Central Line Catheter: No A/P Problem List: (1) Syncope and collapse ICD Code: R55 Status: Acute (2) Anemia ICD Code: D64.9 Status: Acute (3) Hypomagnesemia ICD Code: E83.42 Status: Acute (4) Diabetes mellitus, type 2 ICD Code: E11.9 Status: Chronic (5) Renal insufficiency ICD Code: N28.9 Status: Acute Assessment and Plan 65 year-old male with a history of CAD with stents, [place], morbid obesity, anxiety , depression, peptic ulcer disease, CVA, AGUSTIN, DM, HTN, nephrolithiasis, dyslipidemia, osteoarthritis, chronic low back pain, insomnia, and mild memory impairment who underwent a recent outpatient nuclear stress test showing significant inferolateral ischemia and came to the hospital for evaluation after a syncopal episode at the [place] clinic 05/10/2016. He is scheduled to have outpatient cardiac catheterization by Dr. Pedroza, 05/11/2016. Syncope likely due to GI loss/anemia with hypotension - Consult cardiology - as pt was planned for cath as his workup for gastric sleeve surgery - Consulted neurology, however unlikely neurological etiology - 2-D echocardiogram - Continuous cardiac telemetry to monitor for arrhythmias - Check orthostatics Anemia - Hemoglobin 9.9 and hematocrit 29.2 - most recent labs from 2016 but this appears to be lower than prior trends - monitor serial H&H q6h - GI consulted Nausea/Vomiting/Dysphagia with recent decreased oral intake and episodes of BRBPR - consult gastroenterology never had EGD/colonoscopy. +Family history of colon cancer. Hypomagnesemia, appears chronic - Magnesium 1.1 on admission and low on prior admissions - Magnesium will be replaced IV - start mag ox po bid - Recheck magnesium level and replace as needed Type 2 diabetes mellitus - Initial blood glucose 67 likely from poor oral intake, and renal failure. Patient states that he was not taking his long-acting insulin for the past 3 days because of his acute illness. - Hold home diabetes medications for now - Accu-Cheks with low-dose NovoLog sliding scale coverage - Consult special educator Acute renal insufficiency - BUN 20, creatinine 1.76, estimated GFR 39 (was 74 on 06/15/15 and normal on other prior visits) - Give IVF - Hold metformin for contrast study to avoid further renal dysfunction - Repeat BMP and follow trends - Avoid nephrotoxins DVT prophylaxis - SCDs Written by Althea Salcedo, acting as scribe for Dr. Engel on 05/11/16 at 07:56. All or portions of this note were transcribed by scribLAUREN Diaz. I , Dr. Black Engel personally performed the history, physical exam, and medical decision making; and confirmed the accuracy of the information in the transcribed note. Authenticated by Dr. Black Engel on 05/11/16 at 23:52. Problem Qualifiers (1) Anemia: Qualified Code: D64.9 - Anemia, unspecified type Althea Salcedo PA-C May 11, 2016 07:57 Johny Engel DO May 11, 2016 23:53
--- NOTE | 2016-05-11 08:48 | PD.CONS ---
History of Present Illness Service Neurology Consult Requested By med Reason for Consult syncope Primary Care Physician Wali Pinon M.D. History of Present Illness 65 year-old male admitted for syncopal episode. brought in by evac from clinic where he felt weak and passed out, bp noted to be in the 60's systolic per er notes. on ivf, feels better. no focal weakness, no b/b incontinence. he states he has had episodes when he will feel weak, lightheaded but does not pass out. it can occur when his back pain flares up. he has had back pain for over 20 years, see's pain management, has received avl and ablation for it. hx of cad, scheduled for cath today prompted by an abnormal stress test result has occasional myoclonic type jerks in his extremities which he has had for several months. states his pain meds have been unchanged for the past 20 years. Review of Systems Except as stated in HPI: as above and admit hp/ all other systems reviewed are Neg Past Family Social History Past Medical History Coronary artery disease with multiple bare-metal stents Anxiety and depression Obstructive sleep apnea Diabetes mellitus Hypertension Nephrolithiasis Dyslipidemia Osteoarthritis Chronic low back pain Insomnia Mild memory impairment Prostate CA 15 years ago . Past Surgical History Cholecystectomy Umbilical hernia repair Ankle, knee, and shoulder surgery Epidural steroid injections, ablation of the lumbosacral spine Tonsillectomy . Reported Medications Reported Meds & Active Scripts Active Reported Glipizide ER (Glipizide) 5 Mg Beth 5 Mg PO AC DINNER Take with breakfast or first main meal of the day. Bc Fast Pain Relief Powder (Jxdrvoh-Xjjyavlkihth-Zbmlekrr Powder) 650-195-33.3 Mg Powderpack 1 Pkt PO DAILY Levemir Inj (Insulin Detemir) 1,000 unit/ 10 ML Vial 40 Units SQ HS Do not mix with any other Insulin. Humalog Inj (Insulin Human Lispro) 1,000 Unit/10 Ml Vial 10 Units SQ ACHS PRN Flonase Nasal [place] (Fluticasone Nasal [place]) 50 Mcg/Act [place] 1 [place] EACH NARE BID PRN Metformin (Metformin HCl) 1,000 Mg Tab 1,000 Mg PO BIDPC With meals Potassium Chloride Microencaps 10 Meq Tab 10 Meq PO TID Lasix (Furosemide) 80 Mg Tab 80 Mg PO AC BREAKFAST Bumex (Bumetanide) 2 Mg Tab 2 Mg PO BID Coreg (Carvedilol) 6.25 Mg Tab 6.25 Mg PO BID Atorvastatin (Atorvastatin Calcium) 40 Mg Tab 40 Mg PO HS Alprazolam 0.5 Mg Tab 0.5 Mg PO BID PRN Clonidine (Clonidine HCl) 0.1 Mg Tab 0.1 Mg PO TID Amlodipine (Amlodipine Besylate) 10 Mg Tab 10 Mg PO HS Citalopram (Citalopram Hydrobromide) 20 Mg Tab 20 Mg PO HS Plavix (Clopidogrel Bisulfate) 75 Mg Tab 75 Mg PO HS Doxazosin (Doxazosin Mesylate) 2 Mg Tab 2 Mg PO HS Gabapentin 800 Mg Tab 800 Mg PO TID [place] (Hydrocodone-Acetaminophen) 10-325 Mg Tab 1 Tab PO QID PRN Losartan (Losartan Potassium) 100 Mg Tab 100 Mg PO HS Nitroglycerin SL (Nitroglycerin) 0.4 Mg Subl 0.4 Mg SL DIRECTED PRN ONE TABLET UNDER THE TONGUE NEEDED FOR CHEST PAIN, MAY REPEAT EVERY FIVE MINUTES FOR A TOTAL OF 3 DOSES OR CALL 911 IF NO RELIEF Omeprazole 40 Mg Cap 40 Mg PO HS Restoril (Temazepam) 30 Mg Cap 30 Mg PO HS PRN Voltaren Topical (Diclofenac Topical) 1% Gel 1 Applic TOPICAL DAILY PRN Ms Contin (Morphine Sulfate) 30 Mg Tab 30 Mg PO Q8H Donepezil 5 Mg Tab 5 Mg PO HS Lasix (Furosemide) 40 Mg Tab 40 Mg PO AC LUNCH . Allergies: Coded Allergies: Onion (Verified Allergy, Severe, 06/15/15) Lisinopril (Verified Adverse Reaction, Severe, cough, 06/15/15) . Family History Father age 47 of [place] Mother age 84 COPD Grandmother with colon CA . Social History Tobacco: Denies ever smoking Alcohol: Drinks rare occasional beer Illicit Drugs: Denies . Review of Systems All other ROS: ROS reviewed as documented in chart Past Family Social History Allergies: Coded Allergies: Onion (Verified Allergy, Severe, 06/15/15) Lisinopril (Verified Adverse Reaction, Severe, cough, 06/15/15) Active Ordered Medications Current Medications Medications (Trade) Dose Ordered Sig/Michael Route Start Time Stop Time Status Last Admin (NS Flush) 2 ml UNSCH PRN IV FLUSH 05/10/16 19:00 (NS Flush) 2 ml BID IV FLUSH 05/10/16 21:00 05/10/16 21:00 (Tylenol) 650 mg Q4H PRN PO 05/10/16 19:00 (Zofran Inj) 4 mg Q6H PRN IVP 05/10/16 19:00 (Narcan Inj) 0.4 mg UNSCH PRN IV 05/10/16 19:00 (Morphine Inj) 2 mg Q3H PRN IV PUSH 05/10/16 21:00 05/11/16 04:04 (D50w (Vial) Inj) 25 ml UNSCH PRN IV PUSH 05/10/16 21:45 Glucagon 1 mg 1 mg UNSCH PRN OTHER 05/10/16 21:45 (NS 1000 ml Inj) 1,000 ml @ 100 mls/hr Q10H IV 05/11/16 07:40 05/16/16 07:39 Exam I&O / VS 05/10/16 05/10/16 05/11/16 15:00 23:00 07:00 Output Total 500 ml 600 ml Balance -500 ml -600 ml Output Urine Total 500 ml 600 ml # Voids 2 1 Vital Signs Date Time Temp Pulse Resp B/P Pulse Ox O2 Delivery O2 Flow Rate FiO2 05/11/16 07:51 97.8 79 18 125/58 97 05/11/16 03:56 97.5 72 20 137/66 95 05/11/16 02:36 73 05/10/16 22:46 97.4 69 20 115/63 95 05/10/16 22:01 18 05/10/16 21:10 66 18 120/58 97 Nasal Cannula 2 05/10/16 19:30 69 18 107/56 96 Nasal Cannula 2 05/10/16 18:04 66 18 95 Nasal Cannula 2 05/10/16 18:04 18 95 Nasal Cannula 2 05/10/16 18:04 67 18 104/58 97 Nasal Cannula 2 05/10/16 18:04 95 Nasal Cannula 2 05/10/16 18:01 98.1 67 18 102/57 90 General: Alert and Oriented, No acute distress Eye: EOMI Respiratory: Non-labored respirations Cardiology: Normal rate Neurologic: Alert, Oriented Psychiatric: Cooperative, Appropriate mood & affect, Normal judgement Exam Comments ox 3, no aphasia, follows. looks comfortable. eomi, vff, no drift, mild increased tone in ue rt>left, msr 2++ in knees, mild le erythema and slightly reduced pin in feet, no sensory level, no clonus, planter flexor, gait not assessed 2/2 fall risk Review/Management Diagnosis/Plan: (1) Syncope and collapse Plan: 2/2 hypotension. dehydration, anemia. lowered gfr r/o cardiopulmonary etiology- defer to medical unlikely primary neuro etiology; on polypharmacy meds, which could be cause may have myoclonus 2/2 uremia/psychotropics recs f/u after cardiac evaluation needs to be seen outpatient check orthostatics follow exam no driving (2) Lumbar spinal stenosis Plan: chronic, see's pain management (3) CAD in [place] artery Plan: has stents may go for cath (4) Anemia Problem Qualifiers (1) Anemia: Qualified Code: D64.9 - Anemia, unspecified type Arnaud Ahn MD May 11, 2016 08:48
[2016-05-11] MEDS: SODIUM CHLORIDE 0.9% FLUSH 10 ML FLUSH IV FLUSH SCH ×2 (09:00→20:20)
--- NOTE | 2016-05-11 09:20 | MB ---
cc: LORENZO LEON M.D. DATE OF CONSULTATION: 05/10/2016 REASON FOR CONSULTATION: Please see my dictated history and physical note dated 05/10/2016 for the patient's previously scheduled outpatient cardiac catheterization today. Since dictation of this history and physical note, the patient was admitted yesterday with "syncope," although he states he never lost consciousness. The patient was at a pain management clinic when he states his legs simply "gave out." He states this tends to happen occasionally, the last time in his kitchen a couple weeks ago. He denies dizziness, syncope, dyspnea. Monitoring here in the hospital has been uneventful. He reports rare episodes of chest discomfort for which he uses sublingual nitroglycerin with relief. LABORATORY FINDINGS: Laboratory data here in the hospital is remarkable for hemoglobin 9.6, potassium 3.0, BUN 19, creatinine 1.52, negative cardiac enzymes. RECOMMENDATIONS 1. Agree with GI evaluation for his anemia. 2. Will proceed with cardiac catheterization this afternoon as previously scheduled as his recent nuclear stress test did show inferolateral ischemia and he is to undergo gastric surgery in the near future. Will use a Dye-Vert device to minimize contrast load given his renal insufficiency. MD RADHA Wood/anurag /8:38 AM /9:14 AM NAKUL
[2016-05-11 10:16] LABS: HEMATOCRIT 33.5 % (39.0-51.0); REVIEW FLAG FINAL
--- NOTE | 2016-05-11 10:19 | EKG ---
Date Performed: 05/10/2016 Time Performed: 17:09:57 PTAGE: 65 years EKG: Sinus rhythm WITH OCCASIONAL VENTRICULAR PREMATURE COMPLEXES RIGHT BUNDLE BRANCH BLOCK Baseline artifact Compared to previous tracing, likely no significant change. ABNORMAL ECG PREVIOUS TRACING : 06/16/2015 05.57 DOCTOR: Sallie Montilla Interpretating Date/Time 05/11/2016 10:18:30
[2016-05-11] MEDS ORDERED: IOHEXOL 350 MG/ML 50 ML BTL (for Cath Lab) OTHER ONE (13:29)
--- NOTE | 2016-05-11 13:51 | PD.CONS ---
HPI History of Present Illness This is a 65 year old male who came to the ER for evaluation after he had a syncopal episode at the [place] clinic on 05/10/16. The patient has a hx of CAD with angioplasty and bare metal stents. He recently underwent a nuclear stress test that showed significant inferolateral ischemia and was scheduled to have a cardiac catheterization with Dr. Pedroza today. The patient reports that he has been feeling lightheaded for the past month. Yesterday, he was at a physician' s appointment, when he suddenly became dizzy and reports that his legs gave out. He denies actually losing consciousness. He reports that he has been having intermittent nausea for the past month and that he has had decreased appetite and has lost about 25 lbs. He does have a hx of chronic constipation and he reports that the last two times he moved his bowels, he noticed a small amount of bright red blood in the toilet bowel and on the tissue when he wiped himself. He reports that he has intermittent dysphagia-mainly with solids, but also sometimes liquids and that that solid foods seem to get caught in his mid esophagus. He denies any heartburn. He reports that his maternal grandmother had colon cancer. He has never had an EGD/Colonoscopy. He is on Plavix and ASA at home. Of note, cardiology is following and he is scheduled to have a cardiac catheterization this afternoon. PFSH Past Medical History Coronary artery disease with multiple bare-metal stents placed 05/01/2015 and history of angioplasty (2011) and 2 stents placed 2015 Morbid obesity Anxiety and depression Myocardial infarction 01/2012 Peptic ulcer disease in 1979 CVA Obstructive sleep apnea Diabetes mellitus Hypertension Nephrolithiasis Dyslipidemia Osteoarthritis Chronic low back pain Insomnia Mild memory impairment Prostate CA 15 years ago - treated in [place] - radiation seeds placed Past Surgical History Partial hepatic resection - "shaved" Cholecystectomy Umbilical hernia repair Ankle, knee, and shoulder surgery Epidural steroid injections of the lumbosacral spine Tonsillectomy Coded Allergies: Onion (Verified Allergy, Severe, 06/15/15) Lisinopril (Verified Adverse Reaction, Severe, cough, 06/15/15) Medications Allergies Coded Allergies Type Severity Reaction Last Updated Verified Onion Allergy Severe 06/15/15 Yes Lisinopril Adverse Reaction Severe cough 06/15/15 Yes Active Scripts Medications Dose Route/Sig Days Date Category Dose Instructions Glipizide ER (Glipizide) 5 Mg Beth 5 Mg PO AC DINNER 05/10/16 Reported Take with breakfast or first main meal of the day. Bc Fast Pain Relief Powder (Sfuruus-Afcpxiycitex-Jzvvqptf Powder) 650-195-33.3 Mg Powderpack 1 Pkt PO DAILY 05/10/16 Reported Levemir Inj (Insulin Detemir) 1,000 unit/ 10 ML Vial 40 Units SQ HS 05/10/16 Reported Do not mix with any other Insulin. Humalog Inj (Insulin Human Lispro) 1,000 Unit/10 Ml Vial 10 Units SQ ACHS PRN 05/10/16 Reported Flonase Nasal [place] (Fluticasone Nasal [place]) 50 Mcg/Act [place] 1 [place] EACH NARE BID PRN 05/10/16 Reported Metformin (Metformin HCl) 1,000 Mg Tab 1,000 Mg PO BIDPC 05/10/16 Reported With meals Potassium Chloride Microencaps 10 Meq Tab 10 Meq PO TID 05/10/16 Reported Lasix (Furosemide) 80 Mg Tab 80 Mg PO AC BREAKFAST 05/10/16 Reported Bumex (Bumetanide) 2 Mg Tab 2 Mg PO BID 05/10/16 Reported Coreg (Carvedilol) 6.25 Mg Tab 6.25 Mg PO BID 05/10/16 Reported Atorvastatin (Atorvastatin Calcium) 40 Mg Tab 40 Mg PO HS 05/10/16 Reported Alprazolam 0.5 Mg Tab 0.5 Mg PO BID PRN 05/10/16 Reported Clonidine (Clonidine HCl) 0.1 Mg Tab 0.1 Mg PO TID 05/10/16 Reported Amlodipine (Amlodipine Besylate) 10 Mg Tab 10 Mg PO HS 05/10/16 Reported Citalopram (Citalopram Hydrobromide) 20 Mg Tab 20 Mg PO HS 05/10/16 Reported Plavix (Clopidogrel Bisulfate) 75 Mg Tab 75 Mg PO HS 05/10/16 Reported Doxazosin (Doxazosin Mesylate) 2 Mg Tab 2 Mg PO HS 05/10/16 Reported Gabapentin 800 Mg Tab 800 Mg PO TID 05/10/16 [address] [place] (Hydrocodone-Acetaminophen) 10-325 Mg Tab 1 Tab PO QID PRN 05/10/16 Reported Losartan (Losartan Potassium) 100 Mg Tab 100 Mg PO HS 05/10/16 Reported Nitroglycerin SL (Nitroglycerin) 0.4 Mg Subl 0.4 Mg SL DIRECTED PRN 05/10/16 Reported ONE TABLET UNDER THE TONGUE NEEDED FOR CHEST PAIN, MAY REPEAT EVERY FIVE MINUTES FOR A TOTAL OF 3 DOSES OR CALL 911 IF NO RELIEF Omeprazole 40 Mg Cap 40 Mg PO HS 05/10/16 Reported Restoril (Temazepam) 30 Mg Cap 30 Mg PO HS PRN 05/10/16 Reported Voltaren Topical (Diclofenac Topical) 1% Gel 1 Applic TOPICAL DAILY PRN 05/10/16 Reported Ms Contin (Morphine Sulfate) 30 Mg Tab 30 Mg PO Q8H 05/10/16 Reported Donepezil 5 Mg Tab 5 Mg PO HS 05/10/16 Reported Lasix (Furosemide) 40 Mg Tab 40 Mg PO AC LUNCH 05/10/16 Reported Family History Father age 47 of [place] Mother age 84 COPD MGM from colon CA Social History Tobacco: Denies ever smoking Alcohol: Drinks rare occasional beer Illicit Drugs: Denies . Review of Systems Constitutional: COMPLAINS OF: Fatigue, Weight loss, Change in appetite Respiratory: DENIES: Cough Cardiovascular: DENIES: Chest pain Gastrointestinal: COMPLAINS OF: Bloody stools, Constipation, Nausea, Anorexia, DENIES: Abdominal pain, Black stools Musculoskeletal: COMPLAINS OF: Back pain, DENIES: Joint pain Neurologic: DENIES: Headache Psychiatric: DENIES: Confusion GI Exam Vitals I&O Vital Signs Date Time Temp Pulse Resp B/P Pulse Ox O2 Delivery O2 Flow Rate FiO2 05/11/16 11:48 98.4 75 18 153/75 96 05/11/16 09:54 Nasal Cannula 2.00 05/11/16 09:32 98.3 95 18 133/63 96 142/69 132/63 05/11/16 07:51 97.8 79 18 125/58 97 05/11/16 03:56 97.5 72 20 137/66 95 05/11/16 02:36 73 05/10/16 22:46 97.4 69 20 115/63 95 05/10/16 22:01 18 05/10/16 21:10 66 18 120/58 97 Nasal Cannula 2 05/10/16 19:30 69 18 107/56 96 Nasal Cannula 2 05/10/16 18:04 66 18 95 Nasal Cannula 2 05/10/16 18:04 18 95 Nasal Cannula 2 05/10/16 18:04 67 18 104/58 97 Nasal Cannula 2 05/10/16 18:04 95 Nasal Cannula 2 05/10/16 18:01 98.1 67 18 102/57 90 I/O 05/10/16 05/10/16 05/10/16 05/11/16 05/11/16 05/11/16 07:00 15:00 23:00 07:00 15:00 23:00 Intake Total 260 ml Output Total 500 ml 600 ml 400 ml Balance -500 ml -600 ml -140 ml Intake IV Total 260 ml Output Urine Total 500 ml 600 ml 400 ml # Voids 2 1 2 Imaging Last Impressions Chest X-Ray 05/10/16 1703 Signed Impressions: Service Date/Time: Tuesday, May 10, 2016 17:12 - CONCLUSION: 1. The pulmonary parenchyma is clear. Exam is stable compared to previous. Santos Allen MD Head CT 05/10/16 0000 Signed Impressions: Service Date/Time: Tuesday, May 10, 2016 17:44 - CONCLUSION: Unremarkable study. Colt Pedersen MD Abdomen/Pelvis CT 05/10/16 0000 Signed Impressions: Service Date/Time: Tuesday, May 10, 2016 17:47 - CONCLUSION: 1. Right adrenal nodule most likely an adenoma. 2. Lipoma in the inner thigh on the right. Colt Pedersen MD Laboratory Test 05/10/16 05/10/16 05/11/16 05/11/16 17:10 21:10 01:57 09:39 White Blood Count 10.5 TH/MM3 9.3 TH/MM3 Red Blood Count 3.49 MIL/MM3 3.47 MIL/MM3 Hemoglobin 9.9 GM/DL 9.6 GM/DL 10.9 GM/DL Hematocrit 29.2 % 29.0 % 33.5 % Mean Corpuscular Volume 83.5 FL 83.6 FL Mean Corpuscular Hemoglobin 28.4 PG 27.8 PG Mean Corpuscular Hemoglobin 34.1 % 33.3 % Concent Red Cell Distribution Width 17.3 % 17.1 % Platelet Count 233 TH/MM3 202 TH/MM3 Mean Platelet Volume 8.6 FL 8.6 FL Neutrophils (%) (Auto) 67.5 % 63.0 % Lymphocytes (%) (Auto) 15.7 % 19.1 % Monocytes (%) (Auto) 8.0 % 8.1 % Eosinophils (%) (Auto) 8.1 % 9.0 % Basophils (%) (Auto) 0.7 % 0.8 % Neutrophils # (Auto) 7.1 TH/MM3 5.8 TH/MM3 Lymphocytes # (Auto) 1.6 TH/MM3 1.8 TH/MM3 Monocytes # (Auto) 0.8 TH/MM3 0.7 TH/MM3 Eosinophils # (Auto) 0.9 TH/MM3 0.8 TH/MM3 Basophils # (Auto) 0.1 TH/MM3 0.1 TH/MM3 CBC Comment DIFF FINAL DIFF FINAL Differential Comment Prothrombin Time 10.7 SEC Prothromb Time International 1.0 RATIO Ratio Activated Partial 22.6 SEC Thromboplast Time Sodium Level 140 MEQ/L 141 MEQ/L Potassium Level 3.6 MEQ/L 3.0 MEQ/L Chloride Level 100 MEQ/L 100 MEQ/L Carbon Dioxide Level 29.9 MEQ/L 29.6 MEQ/L Anion Gap 10 MEQ/L 11 MEQ/L Blood Urea Nitrogen 20 MG/DL 19 MG/DL Creatinine 1.76 MG/DL 1.52 MG/DL Estimat Glomerular Filtration 39 ML/MIN 46 ML/MIN Rate Random Glucose 67 MG/DL 109 MG/DL Calcium Level 7.8 MG/DL 7.5 MG/DL Magnesium Level 1.1 MG/DL 1.2 MG/DL Total Creatine Kinase 99 U/L Troponin I LESS THAN 0.02 NG/ML Urine Color LIGHT-YELLOW Urine Turbidity CLEAR Urine pH 5.0 Urine Specific [place] 1.008 Urine Protein NEG mg/dL Urine Glucose (UA) NEG mg/dL Urine Ketones NEG mg/dL Urine Occult Blood NEG Urine Nitrite NEG Urine Bilirubin NEG Urine Urobilinogen LESS THAN 2.0 MG/DL Urine Leukocyte Esterase TRACE Urine WBC 2 /hpf Urine Squamous Epithelial <1 /hpf Cells Urine Hyaline Casts 4 /lpf Microscopic Urinalysis Comment CULT NOT INDICATED Physical Examination HEENT: Normocephalic; atraumatic; no jaundice. CHEST: CTA CARDIAC: RRR ABDOMEN: Soft, nondistended, nontender; no hepatosplenomegaly; bowel sounds are present in all four quadrants. EXTREMITIES: No clubbing, cyanosis, or edema. SKIN: Normal; no rash; no jaundice. 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 Assessment and Plan Plan ASSESSMENT: - BRBPR. Has hx of constipation. He states that the last two times he moved his bowels, he noticed a small amount of bright red blood in the toilet bowel and on the tissue when he wiped himself. He reports that his maternal grandmother had colon cancer. He has never had an EGD/Colonoscopy. He is on Plavix and ASA at home. - Nausea. Intermittent x 1 month. - Dysphagia, intermittent dysphagia-mainly with solids, but also sometimes liquids and that that solid foods seem to get caught in his mid esophagus. He denies any heartburn. PPI - Decreased appetite, abnormal weight loss. Reports decreased appetite with 25 lbs weight loss over past month. - Anemia. 10.9/33.5. - CRYSTAL. Creat 1.52. - Syncopal episode with hx of CAD with hx of angioplasty and bare metal stents. He recently underwent a nuclear stress test that showed significant inferolateral ischemia and was scheduled to have a cardiac catheterization with Dr. Pedroza today. This is now scheduled to be done as inpatient. He does have a hx of chronic constipation and he reports Of note, cardiology is following and he is scheduled to have a cardiac catheterization this afternoon. PLAN: - NPO for cardiac catheterization - Cont. PPI - Monitor HH - Miralax 17 gram po daily - Supportive care - Plan for EGD/Colonoscopy once cleared by cardiology - Further recommendations to follow based on results of above - Pt seen and examined by Dr. Almendarez and myself and this note is written on his behalf Lauren Martel May 11, 2016 13:51
[2016-05-11] MEDS ORDERED: PANTOPRAZOLE SODIUM 40 MG VIAL IV PUSH SCH (14:00)
[2016-05-11] MEDS ORDERED: SODIUM CHLOR 0.9% 1000 ML INJ 1,000 ML IV SCH (14:39)
[2016-05-11] MEDS ORDERED: MISC INFORMATION XX ONE (14:45)
[2016-05-11] MEDS ORDERED: ATROPINE SULFATE 1 MG/ML VIAL IV PRN (14:45)
[2016-05-11] MEDS ORDERED: SODIUM CHLOR 0.9% 250 ML INJ 250 ML IV PRN (14:45)
[2016-05-11] MEDS ORDERED: POTASSIUM CHLOR 20 MEQ PREMIX 100 ML IV SCH (15:00)
--- NOTE | 2016-05-11 16:32 | EC ---
Study Study Date:05/11/2016 STUDY CONCLUSIONS SUMMARY LEFT VENTRICLE: The cavity size was normal. Wall thickness was normal. Systolic function was normal. The estimated ejection fraction was in the range of 55% to 60%. Wall motion was normal; there were no regional wall motion abnormalities. If LV function is below 40, please consider prescribing an ACEI or ARB or document rationale for non-use. PROCEDURE DATA STUDY STATUS: Elective. Procedure: Transthoracic echocardiography. Image quality was good. Scanning was performed from the parasternal, apical, and subcostal acoustic windows. Study completion: The patient tolerated the procedure well. Transthoracic echocardiography. M-mode, complete 2D, complete spectral Doppler, and color Doppler. Patient status: Inpatient. CARDIAC ANATOMY LEFT VENTRICLE: The cavity size was normal. Wall thickness was normal. Systolic function was normal. The estimated ejection fraction was in the range of 55% to 60%. Wall motion was normal; there were no regional wall motion abnormalities. AORTIC VALVE: Trileaflet; normal thickness leaflets. Doppler: Transvalvular velocity was within the normal range. There was no stenosis. No regurgitation. AORTA: Aortic root: The aortic root was normal in size. MITRAL VALVE: Structurally normal valve. Doppler: Transvalvular velocity was within the normal range. There was no evidence for stenosis. No regurgitation. Peak gradient: 2mm Hg (D). LEFT ATRIUM: The atrium was normal in size. RIGHT VENTRICLE: The cavity size was normal. Wall thickness was normal. PULMONIC VALVE: Doppler: Transvalvular velocity was within the normal range. There was no evidence for stenosis. No regurgitation. TRICUSPID VALVE: Structurally normal valve. Doppler: Transvalvular velocity was within the normal range. No regurgitation. PULMONARY ARTERY: The main pulmonary artery was normal-sized. Systolic pressure was within the normal range. RIGHT ATRIUM: The atrium was normal in size. PERICARDIUM: There was no pericardial effusion. SYSTEMIC VEINS: Inferior vena cava: The vessel was normal in size. BASIC MEASUREMENTS ADULT Normal Left ventricle LV internal dimension, ED, chordal level, 46.8 mm 43-52 PLAX LV internal dimension, ES, chordal level, 35.2 mm 23-38 PLAX Fractional shortening, chordal level, PLAX *25 % >29 LV posterior wall thickness, ED 7.63 mm IVS/LVPW ratio, ED *1.64 <1.3 Ventricular septum Septal thickness, ED 12.5 mm Aortic valve Leaflet separation 18 mm 15-26 Left atrium Anterior-posterior dimension 35 mm Right ventricle RV internal dimension, ED, PLAX 25.5 mm 19-38 BASIC MEASUREMENTS ADULT Normal Aortic valve Leaflet separation 18 mm 15-26 Aorta Root diameter, ED 32 mm 20-37 DOPPLER MEASUREMENTS ADULT Normal Mitral valve Peak E-wave velocity 76.8 cm/s Peak A-wave velocity 103 cm/s Peak gradient, D 2 mm Hg Peak E/A ratio 0.7 Tricuspid valve Regurgitant peak velocity 277 cm/s Peak RV-RA gradient, S 31 mm Hg Maximal regurgitant velocity 277 cm/s LEGEND: Mean values are shown as u=mean value. Asterisk (*) salazar values outside specified normal range. Prepared and signed by Jeremiah Ribeiro [id number]
--- NOTE | 2016-05-11 16:40 | MA ---
cc: LORENZO LEON M.D. DATE 05/11/2016 PROCEDURE Left heart catheterization, selective coronary angiography. PROCEDURE NOTE The patient was brought to the cardiac catheterization laboratory in a fasting state after having signed informed consent. The right groin was prepped and draped as per policy and anesthetized with 1% lidocaine. Arterial access was obtained via the right femoral artery and a 6-American sheath placed. Coronary arteriography was performed using 6-American Yuan left 4.5 and right progressive catheters. Left ventriculography was not done, and a DyeVert device was used due to the patient's renal insufficiency. There were no apparent immediate complications. His arteriotomy site was closed with Vascade with the achievement of good hemostasis. HEMODYNAMIC RESULTS Left ventricle 175 with an end-diastolic pressure 18. Aorta 183/89 with a mean of 130. There was no significant transvalvular aortic gradient on pullback of the pigtail catheter. CORONARY ARTERIOGRAPHY The left main is a relatively short vessel with no disease. The left anterior descending is a small to medium-sized vessel with a stent in its proximal portion and probably two stents in its midportion. The stents are widely patent. There is minimal diffuse disease of the proximal and mid LAD. The distal LAD appears to be angiographically normal. The LAD gives rise to small diagonals, the first of which has diffuse possibly up to 30% ostial to proximal disease. The left circumflex is a fairly large vessel demonstrating a stent in its midportion. The stent is widely patent. The ostial to proximal left circumflex has minimal luminal irregularities. An obtuse marginal, small in size, arising from the mid left circumflex has 40% ostial to proximal disease. The right coronary artery is a relatively small though dominant vessel demonstrating a stent in its proximal portion. There is diffuse re-stenosis of the stent up to 30% in its most distal aspect. The mid to distal right coronary has minimal luminal irregularities. LEFT VENTRICULOGRAPHY Not done due to the patients renal insufficiency. CONCLUSIONS 1. Widely patent stents in the proximal and mid LAD, mid left circumflex, proximal right coronary artery. MD RADHA Wood/CADENCE /2:37 PM 4:31 PM NAKUL
[2016-05-11] MEDS ORDERED: PEG (High)/E-LYTE SOLN 4000 ML BTL PO ONE (17:15)
[2016-05-11 19:29] LABS: HEMATOCRIT 30.8 % (39.0-51.0); REVIEW FLAG FINAL
[2016-05-11] MEDS: CARVEDILOL 6.25 MG TAB PO SCH (20:18)
[2016-05-11] MEDS: MAGNESIUM OXIDE 400 MG TAB PO SCH (20:18)
[2016-05-11] MEDS: ATORVASTATIN 40 MG TAB PO SCH (20:18)
[2016-05-11] MEDS: CITALOPRAM HYDROBROMIDE 20 MG TAB PO SCH (22:45)
[2016-05-11] MEDS: DONEPEZIL HCL 5 MG TAB PO SCH (22:45)
[2016-05-11] MEDS: SODIUM CHLORIDE 0.9% FLUSH 10 ML FLUSH IV FLUSH PRN ×2 (23:06→23:43)
[2016-05-11] MEDS: ONDANSETRON HCL 4 MG/2 ML VIAL IVP PRN (23:42)
[2016-05-11] MEDS: MORPHINE SULFATE 30 MG CONTROLLED RELEASE TAB PO SCH (23:45)
[2016-05-11] MEDS ORDERED: ALPRAZolam 0.5 MG TAB PO PRN (23:45)
[2016-05-12] VITALS (15 sets, daily range): BP systolic 104–174; BP diastolic 72–99; PULSE 100–132; RESP 18–20; TEMP 97.8–98.6; O2SAT 75–98
[2016-05-12] MEDS: DOXAZOSIN MESYLATE 2 MG TAB PO SCH ×3 (01:43→20:27)
[2016-05-12] MEDS ORDERED: hydrOXYzine HCL 50 MG/ML VIAL IM ONE (01:45)
[2016-05-12] MEDS: PANTOPRAZOLE SODIUM 40 MG VIAL IV PUSH SCH (02:08)
[2016-05-12] MEDS: MORPHINE SULFATE 4 MG/ML INJ IV PUSH PRN ×4 (02:08→19:27)
[2016-05-12] MEDS: SODIUM CHLORIDE 0.9% FLUSH 10 ML FLUSH IV FLUSH PRN ×5 (02:10→20:31)
[2016-05-12] MEDS: LORazepam 2 MG/ML VIAL IV PUSH PRN ×2 (04:34→19:26)
[2016-05-12] MEDS: INSULIN ASPART SUPPLEMENTAL SCALE SQ SCH ×4 (05:46→20:28)
[2016-05-12] MEDS: MORPHINE SULFATE 30 MG CONTROLLED RELEASE TAB PO SCH ×2 (05:59→15:45)
[2016-05-12] MEDS: ONDANSETRON HCL 4 MG/2 ML VIAL IVP PRN (05:59)
[2016-05-12 06:48] LABS: BASOPHIL % 0.2 % (0.0-2.0); EOSINOPHIL % 0.1 % (0.0-4.0); HEMATOCRIT 34.9 % (39.0-51.0); HEMO FLAGS DIFF FINAL; LYMPH % 6.4 % (9.0-44.0); MEAN CELL VOLUME 83.3 FL (80.0-100.0); MEAN CORPUSCULAR HEMOGLOBIN 27.2 PG (27.0-34.0); MEAN CORPUSCULAR HGB CONC 32.6 % (32.0-36.0); MONO % 3.3 % (0.0-8.0); PLATELET COUNT 258 TH/MM3 (150-450); RED CELL DISTRIBUTION WIDTH 17.3 % (11.6-17.2); WHITE BLOOD COUNT 15.6 TH/MM3 (4.0-11.0)
[2016-05-12 07:11] LABS: BICARBONATE 23.7 MEQ/L (21.0-32.0); MAGNESIUM 1.4 MG/DL (1.5-2.5)
[2016-05-12 07:16] LABS: POTASSIUM 2.8 MEQ/L (3.5-5.1)
--- NOTE | 2016-05-12 07:57 | HHI.PR ---
Review/Management Diagnosis/Plan: (1) Syncope and collapse Plan: 2/2 hypotension. dehydration, anemia. 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 outpatient f/u with us in 1-2 weeks no driving (2) Lumbar spinal stenosis Plan: chronic, see's pain management (3) CAD in [place] artery Plan: seen by cards patent vessels (4) Anemia Subjective Subjective Comments No acute events reported c/o n/v, did prep for gi overnight No headache No chest pain No dyspnea Active Medications Current Medications Medications (Trade) Dose Ordered Sig/Michael Route Start Time Stop Time Status Last Admin (NS Flush) 2 ml UNSCH PRN IV FLUSH 05/10/16 19:00 05/12/16 06:36 (NS Flush) 2 ml BID IV FLUSH 05/10/16 21:00 05/11/16 20:20 (Tylenol) 650 mg Q4H PRN PO 05/10/16 19:00 (Zofran Inj) 4 mg Q6H PRN IVP 05/10/16 19:00 05/12/16 05:59 (Narcan Inj) 0.4 mg UNSCH PRN IV 05/10/16 19:00 (Morphine Inj) 2 mg Q3H PRN IV PUSH 05/10/16 21:00 05/12/16 06:35 (D50w (Vial) Inj) 25 ml UNSCH PRN IV PUSH 05/10/16 21:45 Glucagon 1 mg 1 mg UNSCH PRN OTHER 05/10/16 21:45 (NS 1000 ml Inj) 1,000 ml @ 100 mls/hr Q10H IV 05/11/16 07:40 05/16/16 07:39 05/11/16 20:21 (Mag-Ox) 400 mg Q12HR PO 05/11/16 21:00 05/11/16 20:18 (Miralax) 17 gm DAILY PO 05/12/16 09:00 (Atropine Inj) 0.5 mg UNSCH PRN IV 05/11/16 14:45 (Coreg) 6.25 mg Q12HR PO 05/11/16 21:00 05/11/16 20:18 (Catapres) 0.1 mg TID PO 05/11/16 18:00 (Norvasc) 10 mg DAILY PO 05/12/16 09:00 (Lipitor) 40 mg HS PO 05/11/16 21:00 05/11/16 20:18 (Ecotrin Ec) 325 mg DAILY PO 05/11/16 17:15 (Plavix) 75 mg DAILY PO 05/12/16 09:00 (CeleXA) 20 mg HS PO 05/11/16 22:45 (Aricept) 5 mg HS PO 05/11/16 22:45 (Cardura) 2 mg HS PO 05/11/16 22:45 05/12/16 01:43 (Neurontin) 800 mg TID PO 05/12/16 09:00 (Xanax) 0.5 mg BID PRN PO 05/11/16 23:45 Hold 05/12/16 01:47 (Oramorph Sr) 30 mg Q8H PO 05/11/16 23:45 (Protonix Inj) 40 mg Q24H IV PUSH 05/12/16 01:45 05/12/16 02:08 (Ativan Inj) 0.5 mg Q6H PRN IV PUSH 05/12/16 04:30 05/12/16 04:34 Allergies Allergies Coded Allergies Onion (Verified Allergy, Severe, 06/15/15) Lisinopril (Verified Adverse Reaction, Severe, cough, 06/15/15) Review of Systems All other ROS: ROS reviewed as documented in chart Exam I&O / VS 05/11/16 05/11/16 05/12/16 15:00 23:00 07:00 Intake Total 260 ml 480 ml 100 ml Output Total 400 ml 1250 ml 250 ml Balance -140 ml -770 ml -150 ml Intake Oral 480 ml 100 ml IV Total 260 ml Output Urine Total 400 ml 1250 ml Emesis 250 ml # Voids 2 5 # Bowel Movements 0 5 Vital Signs Date Time Temp Pulse Resp B/P Pulse Ox O2 Delivery O2 Flow Rate FiO2 05/12/16 04:00 98.3 103 18 167/86 91 05/12/16 00:49 174/98 05/12/16 00:00 98.3 103 18 95 05/11/16 20:00 98.3 84 18 171/84 92 05/11/16 18:00 98.2 91 20 166/85 92 05/11/16 15:56 94 Room Air 05/11/16 15:15 98 18 129/83 100 05/11/16 11:48 98.4 75 18 153/75 96 05/11/16 09:54 Nasal Cannula 2.00 05/11/16 09:32 98.3 95 18 133/63 96 142/69 132/63 General: Alert and Oriented, No acute distress Eye: EOMI Respiratory: Non-labored respirations Cardiology: Normal rate Neurologic: Alert, Oriented Psychiatric: Cooperative, Appropriate mood & affect, Normal judgement Exam Comments ox 3, no aphasia, follows. looks comfortable. eomi, vff, no drift, mild increased tone in ue rt>left, msr 2++ in knees, mild le erythema and slightly reduced pin in feet, no sensory level, no clonus, planter flexor, gait not assessed 2/2 fall risk Objective Micro and Labs Laboratory Tests Test 05/11/16 05/11/16 05/12/16 09:39 19:06 06:13 Hemoglobin 10.9 10.5 11.4 Hematocrit 33.5 30.8 34.9 White Blood Count 15.6 Red Blood Count 4.20 Mean Corpuscular Volume 83.3 Mean Corpuscular Hemoglobin 27.2 Mean Corpuscular Hemoglobin 32.6 Concent Red Cell Distribution Width 17.3 Platelet Count 258 Mean Platelet Volume 8.8 Neutrophils (%) (Auto) 90.0 Lymphocytes (%) (Auto) 6.4 Monocytes (%) (Auto) 3.3 Eosinophils (%) (Auto) 0.1 Basophils (%) (Auto) 0.2 Neutrophils # (Auto) 14.0 Lymphocytes # (Auto) 1.0 Monocytes # (Auto) 0.5 Eosinophils # (Auto) 0.0 Basophils # (Auto) 0.0 CBC Comment DIFF FINAL Differential Comment Sodium Level 141 Potassium Level 2.8 Chloride Level 101 Carbon Dioxide Level 23.7 Anion Gap 16 Blood Urea Nitrogen 9 Creatinine 0.99 Estimat Glomerular Filtration 76 Rate Random Glucose 178 Calcium Level 8.8 Magnesium Level 1.4 Triglycerides Level 144 Cholesterol Level 131 LDL Cholesterol 50 HDL Cholesterol 52.0 Cholesterol/HDL Ratio 2.51 Problem Qualifiers (1) Anemia: Qualified Code: D64.9 - Anemia, unspecified type Arnaud Ahn MD May 12, 2016 07:57
[2016-05-12] MEDS: ASPIRIN EC 325 MG TABEC PO SCH (08:15)
[2016-05-12] MEDS: CLOPIDOGREL 75 MG TAB PO SCH (08:15)
[2016-05-12] MEDS: MAGNESIUM OXIDE 400 MG TAB PO SCH ×2 (08:16→20:27)
[2016-05-12] MEDS: cloNIDine HCL 0.1 MG TAB PO SCH ×3 (08:16→17:34)
[2016-05-12] MEDS: GABAPENTIN 400 MG CAP PO SCH ×3 (08:17→17:34)
[2016-05-12] MEDS: SODIUM CHLORIDE 0.9% FLUSH 10 ML FLUSH IV FLUSH SCH ×2 (08:17→20:30)
[2016-05-12] MEDS: CARVEDILOL 6.25 MG TAB PO SCH ×2 (08:17→20:27)
[2016-05-12] MEDS: POLYETHYLENE GLYCOL 17 GM PKG PO SCH (08:17)
[2016-05-12] MEDS ORDERED: cloNIDine HCL 0.1 MG TAB PO SCH (09:00)
[2016-05-12] MEDS: POTASSIUM CHLOR 20 MEQ PREMIX 100 ML IV SCH ×4 (09:16→17:34)
[2016-05-12] MEDS: MAGNESIUM SULFATE 1 GM PREMIX 100 ML IV SCH ×4 (09:16→16:00)
--- NOTE | 2016-05-12 09:59 | PD.CARD.PN ---
Subjective Subjective Remarks Nauseated, lightheaded. No CP, dyspnea, palpitations, syncope. Mild diffuse abdominal pain. Objective Medications Item Value Date Time Potassium Chloride 10 meq 05/12/16 1400 (KCl) Q8HR/PO Amlodipine 10 mg 05/12/16 0900 Besylate DAILY/PO 05/12/16 0816 (Norvasc) Clopidogrel 75 mg 05/12/16 0900 Bisulfate DAILY/PO (Plavix) Doxazosin Mesylate 2 mg 05/11/16 2245 (Cardura) HS/PO 05/12/16 0143 Carvedilol 6.25 mg 05/11/16 2100 (Coreg) Q12HR/PO 05/12/16 0817 Atorvastatin 40 mg 05/11/16 2100 Calcium HS/PO 05/11/16 2018 (Lipitor) Clonidine 0.1 mg 05/11/16 1800 (Catapres) TID/PO 05/12/16 0816 Aspirin 325 mg 05/11/16 1715 (Ecotrin Ec) DAILY/PO Spironolactone 25 mg 05/12/16 1000 (Aldactone) DAILY/PO Losartan Potassium 100 mg 05/12/16 1000 (Cozaar) Q12HR/PO Doxazosin Mesylate 2 mg 05/12/16 1000 (Cardura) DAILY/PO Vital Signs / I&O Vital Signs Date Time Temp Pulse Resp B/P Pulse Ox O2 Delivery O2 Flow Rate FiO2 05/12/16 08:00 97.9 125 20 161/99 75 05/12/16 04:00 98.3 103 18 167/86 91 05/12/16 00:49 174/98 05/12/16 00:00 98.3 103 18 95 05/11/16 20:00 98.3 84 18 171/84 92 05/11/16 18:00 98.2 91 20 166/85 92 05/11/16 15:56 94 Room Air 05/11/16 15:15 98 18 129/83 100 05/11/16 11:48 98.4 75 18 153/75 96 I/O 05/11/16 05/11/16 05/11/16 05/12/16 05/12/16 05/12/16 07:00 15:00 23:00 07:00 15:00 23:00 Intake Total 260 ml 480 ml 100 ml Output Total 600 ml 400 ml 1250 ml 250 ml Balance -600 ml -140 ml -770 ml -150 ml Intake Oral 480 ml 100 ml IV Total 260 ml Output Urine Total 600 ml 400 ml 1250 ml Emesis 250 ml # Voids 1 2 5 # Bowel Movements 0 5 Physical Exam GENERAL: Well developed, well nourished. Mild distress. HEENT: Jugular venous pressure is normal. CHEST: Lungs clear to auscultation anteriorly. CARDIAC: Regular rate and rhythm without S3, S4, or murmur. ABDOMEN: Soft, nontender, no hepatosplenomegaly. Bowel sounds present. Right groin nontender, no definite hematoma. EXTREMITIES: No clubbing, cyanosis, or edema. Laboratory Laboratory Tests Test 05/11/16 05/12/16 19:06 06:13 Hemoglobin 10.5 GM/DL 11.4 GM/DL Hematocrit 30.8 % 34.9 % White Blood Count 15.6 TH/MM3 Red Blood Count 4.20 MIL/MM3 Mean Corpuscular Volume 83.3 FL Mean Corpuscular Hemoglobin 27.2 PG Mean Corpuscular Hemoglobin 32.6 % Concent Red Cell Distribution Width 17.3 % Platelet Count 258 TH/MM3 Mean Platelet Volume 8.8 FL Neutrophils (%) (Auto) 90.0 % Lymphocytes (%) (Auto) 6.4 % Monocytes (%) (Auto) 3.3 % Eosinophils (%) (Auto) 0.1 % Basophils (%) (Auto) 0.2 % Neutrophils # (Auto) 14.0 TH/MM3 Lymphocytes # (Auto) 1.0 TH/MM3 Monocytes # (Auto) 0.5 TH/MM3 Eosinophils # (Auto) 0.0 TH/MM3 Basophils # (Auto) 0.0 TH/MM3 CBC Comment DIFF FINAL Differential Comment Sodium Level 141 MEQ/L Potassium Level 2.8 MEQ/L Chloride Level 101 MEQ/L Carbon Dioxide Level 23.7 MEQ/L Anion Gap 16 MEQ/L Blood Urea Nitrogen 9 MG/DL Creatinine 0.99 MG/DL Estimat Glomerular Filtration 76 ML/MIN Rate Random Glucose 178 MG/DL Calcium Level 8.8 MG/DL Magnesium Level 1.4 MG/DL Triglycerides Level 144 MG/DL Cholesterol Level 131 MG/DL LDL Cholesterol 50 MG/DL HDL Cholesterol 52.0 MG/DL Cholesterol/HDL Ratio 2.51 RATIO Assessment and Plan Problem List: (1) CAD (coronary artery disease) Assessment and Plan: CAD status stable. No angina. Favorable findings on cardiac cath tomorrow. Home cardiac medications resumed. OK for discharge from a cardiac standpoint after potassium normalized. (2) Syncope and collapse Assessment and Plan: The patient denies ever losing consciousness. Suspect his hypotension, presenting symptoms due to dehydration. Renal indices normalized with hydration. Monitoring currently appears to show sinus tachycardia. (3) Hypertension Assessment and Plan: Suboptimal BP's though patient in distress from nausea, abdominal discomfort. Home cardiac medication resumed. Code Status full code Discussed Condition With patient Problem Qualifiers (1) CAD (coronary artery disease): Qualified Code: I25.118 - Coronary artery disease of [place] artery of [place] heart with stable angina pectoris (2) Hypertension: Qualified Code: I10 - Essential hypertension Blu Pedroza MD May 12, 2016 09:58
[2016-05-12] MEDS ORDERED: ONDANSETRON HCL 4 MG/2 ML VIAL IV PUSH ONE (10:00)
[2016-05-12] MEDS: SPIRONOLACTONE 25 MG TAB PO SCH (11:11)
[2016-05-12] MEDS: LOSARTAN 50 MG TAB PO SCH ×2 (11:18→20:27)
[2016-05-12] MEDS ORDERED: RESP: ALBUTEROL 2.5 MG/IPRATROPIUM 0.5 MG NEB (PRN) NEB (12:30)
[2016-05-12] MEDS ORDERED: LORazepam 2 MG/ML VIAL IV PUSH ONE (12:45)
[2016-05-12] MEDS ORDERED: FUROSEMIDE 40 MG/4 ML VIAL IV PUSH ONE ×2 (13:00→13:15)
[2016-05-12 13:30] LABS: BLOOD GAS BASE EXCESS -2.9 mmol/L (-2-2); BLOOD GAS HCO3 22 mmol/L (22-26); BLOOD GAS METHEMOGLOBIN 0.8 % (0-2); BLOOD GAS O2 HGB SATURATION 83 % (90-100); BLOOD GAS OXYGEN CONTENT 12.2 Vol % (12.0-20.0); BLOOD GAS PCO2 43 mmHg (38-42); BLOOD GAS PO2 59 mmHg (61-120); BLOOD GAS TOTAL HGB 10.4 G/DL (12.0-16.0); TEMP CORR TO 98.6
[2016-05-12 13:32] LABS: CRITICAL VALUE YES; DRAW SITE RT RADIAL; LITER FLOW 6 L/M; NUMBER OF ARTERIAL PUNCTURES 2; OXYGEN DEVICE SM; STAT YES; ULNAR PULSE Y
--- NOTE | 2016-05-12 13:32 | RADRPT ---
EXAM DATE/TIME: 05/12/2016 12:59 [facility] COMPARISON: CHEST SINGLE AP, May 10, 2016, 17:12. INDICATIONS : Dyspnea. Pt. is having difficulty breathing. Pt. states he passed out a few days ago. MEDICAL HISTORY : Cardiovascular disease. Cerebrovascular disease. Hypertension SURGICAL HISTORY : Cholecystectomy. Cardiac cath 05/2016. ENCOUNTER: Subsequent ACUITY: 3 days PAIN SCORE: 0/10 LOCATION: Bilateral chest FINDINGS: A large area of consolidation is seen in the left base. The right lung is clear. The heart is minim ally enlarged. The pulmonary vascularity is mildly congested. CONCLUSION: Consolidative changes in the left lower lobe. Jacob Allen MD FACR on May 12, 2016 at 13:18 Board Certified Radiologist. This report was verified electronically.
[2016-05-12] MEDS: POTASSIUM CHLORIDE 10 MEQ CONTROLLED RELEASE TAB PO SCH ×2 (14:00→20:27)
--- NOTE | 2016-05-12 14:27 | HHI.PR ---
Subjective Remarks Follow-up for syncope, CAD, acute respiratory failure. Right around 1PM, patient experienced shortness of breath and hypoxemia. Details are written in the assessment and plan section. Objective Vitals Vital Signs Date Time Temp Pulse Resp B/P Pulse Ox O2 Delivery O2 Flow Rate FiO2 05/12/16 10:45 83 Nasal Cannula 3.00 05/12/16 08:20 124 05/12/16 08:00 97.9 125 20 161/99 75 05/12/16 04:00 98.3 103 18 167/86 91 05/12/16 00:49 174/98 05/12/16 00:00 98.3 103 18 95 05/11/16 20:00 98.3 84 18 171/84 92 05/11/16 18:00 98.2 91 20 166/85 92 05/11/16 15:56 94 Room Air 05/11/16 15:15 98 18 129/83 100 I/O 05/11/16 05/11/16 05/11/16 05/12/16 05/12/16 05/12/16 07:00 15:00 23:00 07:00 15:00 23:00 Intake Total 260 ml 480 ml 100 ml Output Total 600 ml 400 ml 1250 ml 250 ml Balance -600 ml -140 ml -770 ml -150 ml Intake Oral 480 ml 100 ml IV Total 260 ml Output Urine Total 600 ml 400 ml 1250 ml Emesis 250 ml # Voids 1 2 5 # Bowel Movements 0 5 Result Diagram: 05/12/16 0613 05/12/16 0613 Imaging Last Impressions Chest X-Ray 05/10/16 1703 Signed Impressions: Service Date/Time: Tuesday, May 10, 2016 17:12 - CONCLUSION: 1. The pulmonary parenchyma is clear. Exam is stable compared to previous. Santos Allen MD Head CT 05/10/16 0000 Signed Impressions: Service Date/Time: Tuesday, May 10, 2016 17:44 - CONCLUSION: Unremarkable study. Colt Pedersen MD Abdomen/Pelvis CT 05/10/16 0000 Signed Impressions: Service Date/Time: Tuesday, May 10, 2016 17:47 - CONCLUSION: 1. Right adrenal nodule most likely an adenoma. 2. Lipoma in the inner thigh on the right. Colt Pedersen MD Objective Remarks GENERAL: Alert, oriented 3, in acute respiratory distress. SKIN: Warm and dry. HEAD: Normocephalic. EYES: No scleral icterus. No injection or drainage. NECK: Supple, trachea midline. No JVD or lymphadenopathy. CARDIOVASCULAR: Regular rate and rhythm without murmurs, gallops, or rubs. RESPIRATORY: Diffuse rhonchi, moderate air movement. No wheezing appreciated. GASTROINTESTINAL: Abdomen soft, non-tender, nondistended. MUSCULOSKELETAL: No cyanosis, or edema. BACK: Nontender without obvious deformity. No CVA tenderness. Procedures Echocardiogram 05/11/2016 The cavity size was normal. Wall thickness was normal. Systolic function was normal. The estimated ejection fraction was in the range of 55% to 60%. Wall motion was normal; there were no regional wall motion abnormalities. A/P Problem List: (1) Syncope and collapse ICD Code: R55 Status: Acute (2) Anemia ICD Code: D64.9 Status: Acute (3) Hypomagnesemia ICD Code: E83.42 Status: Acute (4) Diabetes mellitus, type 2 ICD Code: E11.9 Status: Chronic (5) Renal insufficiency ICD Code: N28.9 Status: Acute Assessment and Plan Mr. Bui is a 65 year-old male with a history of CAD with stents, [place], morbid obesity, anxiety, depression, peptic ulcer disease, CVA, AGUSTIN, DM, HTN, nephrolithiasis, dyslipidemia, osteoarthritis, chronic low back pain, insomnia, and mild memory impairment who underwent a recent outpatient nuclear stress test showing significant inferolateral ischemia and came to the hospital for evaluation after a syncopal episode at the [place] [facility] 05/10/2016. He underwent cardiac catheterization by Dr. Pedroza, 05/11/2016 which showed widely patent stents in the proximal and mid LAD, mid left circumflex, proximal right RCA. During this admission patient also complained of bright red blood per rectum. GI was consulted and recommended EGD colonoscopy. Patient is currently on Plavix and aspirin. However after discussing with patient and GI, patient was kept in the hospital for possible EGD colonoscopy on 05/12/2016. 05/12/2016 Mr. Bui went into acute respiratory failure with hypoxia this afternoon. I went to evaluate patient for 1 PM and found patient in [id number] respiratory distress. He was on nonrebreather mask. On physical exam patient was tachycardic and diffuse coarse lung sounds, rhonchi. A stat chest x-ray, reviewed by me shows bilateral pulmonary edema left worse than right. Of note chest x-ray from 05/10/2016 did not show any acute findings. We immediately instituted the following: - Lasix 40 mg IV 2 - Stat chest x-ray - Breathing treatment was ordered. - Condom catheter was placed and later due to retention Harkins catheter was placed. - BiPAP was initiated with 10 over 5 setting to be titrated by respiratory therapist. - ABG ABG shows 7.33/43/59 with O2 sat 83% on 6 L of oxygen. I stayed with the patient until BiPAP was started. I take the patient later on and patient reported feeling better on BiPAP. Due to concern over oxygen saturation and also need for close nursing supervision, patient was transferred to ICU. I have discussed with intensive care attending in case hydraulics teacher consult becomes necessary. I checked on patient after patient went to ICU. In the ICU patient is currently doing well, oxygen saturation above 98% on nonrebreather. Total critical time spent more than 45 minutes. - Acute respiratory failure hypoxemic. - See above for today's clinical status change. - Wean off O2 requirements to keep O2 sat > 90%. - Repeat CXR in the AM. - Probable pneumonia - CBC indicates leukocytosis, CXR indicates left sided consolidation. - Will start patient on Levaquin 750mg PO Qday X 5 days. - Also start patient on Prednisone 50mg Qday X 5 days. - DuoNeb scheduled and PRN. - Syncope - Etiology is not clear. Orthostatics were not significant. Cardiac cath unremarkable for any acute findings. - CAD - continue aspirin 325mg, plavix 75 mg, Carvedilol 6.25mg Q12hrs, Losartan 100mg Q12hrs. - Hypertension - continue amlodipine 10 mg daily, losartan 100 mg every 12 hours , carvedilol 6.25 mg every 12 hours. Probable GI bleed - Hemoglobin 9.9 and hematocrit 29.2 - most recent labs from 2016 but this appears to be lower than prior trends - GI is following for possible EGD/Colonoscopy. - Hypomagnesemia - Hypokalemia - IV Magnesium sulfate total 4 gram. - IV and PO KCL replacement. - Will repeat CBC, BMP in the AM. - Type 2 diabetes mellitus - Continue Sliding scale insulin. - Will start patient on Levemir 5 units QHS. May need to increase insulin dosage while on prednisone. - Acute renal insufficiency - Creatinine Improved from 1.76 --> 0.99. Full code. SCDs. Problem Qualifiers (1) Anemia: Qualified Code: D64.9 - Anemia, unspecified type Johny Engel DO May 12, 2016 2:27 pm
[2016-05-12] MEDS ORDERED: POTASSIUM CHLOR 20 MEQ PREMIX 100 ML ONE (15:50)
[2016-05-12] MEDS: predniSONE 50 MG TAB PO SCH (17:00)
[2016-05-12] MEDS: LEVOFLOXACIN 750 MG TAB PO SCH (17:43)
[2016-05-12] MEDS ORDERED: CHLORHEXIDINE GLUCONATE 2 % 1 PACK (2 CLOTHS)(extra cloths) TOPICAL PRN (19:45)
[2016-05-12] MEDS: RESP: ALBUTEROL 2.5 MG/IPRATROPIUM 0.5 MG NEB (SCH) NEB (19:47)
[2016-05-12] MEDS: DONEPEZIL HCL 5 MG TAB PO SCH (20:27)
[2016-05-12] MEDS: ATORVASTATIN 40 MG TAB PO SCH (20:27)
[2016-05-12] MEDS: INSULIN DETEMIR 100 UNITS/ML VIAL SQ SCH (20:28)
[2016-05-12] MEDS: cefTRIAXone INJ 2,000 MG in SODIUM CHLORIDE 0.9% INJ 100 ML IV SCH (20:30)
[2016-05-12] MEDS: CITALOPRAM HYDROBROMIDE 20 MG TAB PO SCH (23:57)
[2016-05-12] MEDS: MORPHINE SULFATE 15 MG CONTROLLED RELEASE TAB PO SCH (23:57)
[2016-05-13] VITALS (16 sets, daily range): BP systolic 77–120; BP diastolic 49–70; PULSE 83–102; RESP 5–25; TEMP 97.8–99; O2SAT 91–99
[2016-05-13] MEDS: PANTOPRAZOLE SODIUM 40 MG VIAL IV PUSH SCH (02:52)
[2016-05-13] MEDS: CHLORHEXIDINE GLUCONATE 2 % 1 PACK (2 CLOTHS)(taper/protocol) TOPICAL SCH (04:00)
[2016-05-13] MEDS: POTASSIUM CHLORIDE 10 MEQ CONTROLLED RELEASE TAB PO SCH ×3 (05:21→20:43)
[2016-05-13] MEDS: MORPHINE SULFATE 15 MG CONTROLLED RELEASE TAB PO SCH ×3 (05:27→15:20)
[2016-05-13 05:40] LABS: AUTOMATED NEUTROPHIL # 13.1 TH/MM3 (1.8-7.7); BASOPHIL % 0.1 % (0.0-2.0); EOSINOPHIL # 0.1 TH/MM3 (0-0.4); EOSINOPHIL % 0.4 % (0.0-4.0); HEMATOCRIT 31.3 % (39.0-51.0); HEMO FLAGS DIFF FINAL; LYMPH % 7.5 % (9.0-44.0); LYMPHOCYTE # 1.2 TH/MM3 (1.0-4.8); MEAN CELL VOLUME 83.1 FL (80.0-100.0); MEAN CORPUSCULAR HEMOGLOBIN 27.3 PG (27.0-34.0); MEAN CORPUSCULAR HGB CONC 32.8 % (32.0-36.0); MONO % 7.4 % (0.0-8.0); NEUT % 84.6 % (16.0-70.0); PLATELET COUNT 222 TH/MM3 (150-450); RED BLOOD COUNT 3.77 MIL/MM3 (4.50-5.90); RED CELL DISTRIBUTION WIDTH 17.3 % (11.6-17.2); WHITE BLOOD COUNT 15.4 TH/MM3 (4.0-11.0)
[2016-05-13 06:03] LABS: BICARBONATE 29.8 MEQ/L (21.0-32.0)
[2016-05-13 06:14] LABS: POTASSIUM 2.8 MEQ/L (3.5-5.1)
[2016-05-13] MEDS: GABAPENTIN 400 MG CAP PO SCH ×2 (06:26→18:01)
[2016-05-13] MEDS: INSULIN ASPART SUPPLEMENTAL SCALE SQ SCH ×4 (06:28→20:42)
[2016-05-13] MEDS: RESP: ALBUTEROL 2.5 MG/IPRATROPIUM 0.5 MG NEB (SCH) NEB ×3 (07:44→19:33)
--- NOTE | 2016-05-13 08:33 | HHI.PR ---
Subjective Remarks Follow-up for syncope, CAD, acute respiratory failure. Mr. Bui is currently doing well. He is on nasal cannula 3 L of oxygen. Denies any chest pain, shortness of breath, fever or chills. Objective Vitals Vital Signs Date Time Temp Pulse Resp B/P Pulse Ox O2 Delivery O2 Flow Rate FiO2 05/13/16 07:55 94 Nasal Cannula 3.00 05/13/16 06:00 99 05/13/16 05:30 96 Simple Mask 6.00 05/13/16 04:36 99 05/13/16 04:00 97 05/13/16 04:00 97.8 90 25 110/60 91 05/13/16 04:00 99 Bi-Pap 50 05/13/16 02:00 91 05/13/16 01:35 95 50 05/13/16 00:00 95 Bi-Pap 50 05/13/16 00:00 92 5 104/60 99 05/13/16 00:00 83 05/12/16 22:37 97 50 05/12/16 22:00 100 05/12/16 20:40 95 50 05/12/16 20:30 93 Bi-Pap 50 05/12/16 20:00 98.1 103 18 104/80 94 05/12/16 20:00 111 05/12/16 20:00 92 Simple Mask 6.00 05/12/16 19:47 94 Simple Mask 6.00 05/12/16 18:00 112 05/12/16 16:00 93 Simple Mask 6.00 05/12/16 16:00 98.6 113 18 105/72 98 05/12/16 16:00 113 05/12/16 15:10 98.6 118 20 122/78 98 Manual Cuff/Palpation 05/12/16 12:00 97.8 132 20 128/77 80 05/12/16 10:45 83 Nasal Cannula 3.00 I/O 05/12/16 05/12/16 05/12/16 05/13/16 05/13/16 05/13/16 07:00 15:00 23:00 07:00 15:00 23:00 Intake Total 100 ml 213 ml 162 ml Output Total 250 ml 600 ml 230 ml Balance -150 ml -387 ml -68 ml Intake Oral 100 ml 50 ml 50 ml IV Total 163 ml 112 ml Output Urine Total 600 ml 230 ml Emesis 250 ml 0 ml 0 ml # Voids 5 # Bowel Movements 5 0 0 Result Diagram: 05/13/16 0457 05/13/16 0451 Imaging Last Impressions Chest X-Ray 05/13/16 0800 Signed Impressions: Service Date/Time: May 07:56 - CONCLUSION: Marked decrease in the left lower lung consolidation. Rick Avendaño MD Head CT 05/10/16 0000 Signed Impressions: Service Date/Time: Tuesday, May 10, 2016 17:44 - CONCLUSION: Unremarkable study. Colt Pedersen MD Abdomen/Pelvis CT 05/10/16 0000 Signed Impressions: Service Date/Time: Tuesday, May 10, 2016 17:47 - CONCLUSION: 1. Right adrenal nodule most likely an adenoma. 2. Lipoma in the inner thigh on the right. Colt Pedersen MD Objective Remarks GENERAL: Alert, oriented 3, in acute respiratory distress. SKIN: Warm and dry. HEAD: Normocephalic. EYES: No scleral icterus. No injection or drainage. NECK: Supple, trachea midline. No JVD or lymphadenopathy. CARDIOVASCULAR: Regular rate and rhythm without murmurs, gallops, or rubs. RESPIRATORY: Moderate air movement. Scattered rhonchi. No significant wheezing appreciated. GASTROINTESTINAL: Abdomen soft, non-tender, nondistended. MUSCULOSKELETAL: No cyanosis, or edema. BACK: Nontender without obvious deformity. No CVA tenderness. Procedures Echocardiogram 05/11/2016 The cavity size was normal. Wall thickness was normal. Systolic function was normal. The estimated ejection fraction was in the range of 55% to 60%. Wall motion was normal; there were no regional wall motion abnormalities. A/P Problem List: (1) Syncope and collapse ICD Code: R55 Status: Acute (2) Anemia ICD Code: D64.9 Status: Acute (3) Hypomagnesemia ICD Code: E83.42 Status: Acute (4) Diabetes mellitus, type 2 ICD Code: E11.9 Status: Chronic (5) Renal insufficiency ICD Code: N28.9 Status: Acute Assessment and Plan Mr. Bui is a 65 year-old male with a history of CAD with stents, [place], morbid obesity, anxiety, depression, peptic ulcer disease, CVA, AGUSTIN, DM, HTN, nephrolithiasis, dyslipidemia, osteoarthritis, chronic low back pain, insomnia, and mild memory impairment who underwent a recent outpatient nuclear stress test showing significant inferolateral ischemia and came to the hospital for evaluation after a syncopal episode at the [place] clinic 05/10/2016. He underwent cardiac catheterization by Dr. Pedroza, 05/11/2016 which showed widely patent stents in the proximal and mid LAD, mid left circumflex, proximal right RCA. During this admission patient also complained of bright red blood per rectum. GI was consulted and recommended EGD colonoscopy. Patient is currently on Plavix and aspirin. However after discussing with patient and GI, patient was kept in the hospital for possible EGD colonoscopy on 05/12/2016. - Acute respiratory failure hypoxemic. - Much improved. Will continue Lasix 20mg IV BID. - Wean off O2 requirements to keep O2 sat > 90%. - Repeat CXR today shows marked improvement. - Probable pneumonia - CBC indicates leukocytosis, CXR indicates left sided consolidation. - Continue Levaquin 750mg PO Qday X 5 days and Ceftriaxone. - Continue patient on Prednisone 50mg Qday X 5 days. - DuoNeb scheduled and PRN. - Hypomagnesemia - Hypokalemia - Mg is still low and K+ 2.8. - IV KCL 40 meq given. However, patient complains of burning sensation. - Mg replaced by IV. We will continue oral KCL. - Syncope - Etiology is not clear. Orthostatics were not significant. Cardiac cath unremarkable for any acute findings. - CAD - continue aspirin 325mg, plavix 75 mg, Carvedilol 6.25mg Q12hrs, Losartan 100mg Q12hrs. - Hypertension - continue amlodipine 10 mg daily, losartan 100 mg every 12 hours , carvedilol 6.25 mg every 12 hours. Probable GI bleed - Hemoglobin 9.9 and hematocrit 29.2 - most recent labs from 2016 but this appears to be lower than prior trends - GI is following for possible EGD/Colonoscopy. - Type 2 diabetes mellitus - Continue Sliding scale insulin. - Will start patient on Levemir 5 units QHS. May need to increase insulin dosage while on prednisone. - Acute renal insufficiency - Creatinine Improved from 1.76 --> 0.99. Full code. SCDs. Problem Qualifiers (1) Anemia: Qualified Code: D64.9 - Anemia, unspecified type Johny Engel DO May 13, 2016 8:33 am
--- NOTE | 2016-05-13 08:35 | RADRPT ---
EXAM DATE/TIME: 05/13/2016 07:56 [place] COMPARISON: CHEST SINGLE AP, May 12, 2016, 12:59. INDICATIONS : Dyspnea. MEDICAL HISTORY : Hypertension. Diabetes mellitus type II. Congestive heart failure. SURGICAL HISTORY : Tonsillectomy. Cholecystectomy. ORIF of right ankle, right tibia/fibula. right forearm. ENCOUNTER: Subsequent ACUITY: 4 - 6 days PAIN SCORE: 7/10 LOCATION: chest FINDINGS: Single AP view of the chest. Markedly decreased opacity at the left lung base. There is some residual pulmonary consolidation securing the left hemidiaphragm. Cardiomediastinal silhouette within normal limits. No evidence of pleural effusion or pneumothorax. CONCLUSION: Marked decrease in the left lower lung consolidation. Rick Avendaño MD on May 13, 2016 at 8:32 Board Certified Radiologist. This report was verified electronically.
[2016-05-13] MEDS: ASPIRIN EC 325 MG TABEC PO SCH (08:53)
[2016-05-13] MEDS: SPIRONOLACTONE 25 MG TAB PO SCH (08:53)
[2016-05-13] MEDS: MAGNESIUM OXIDE 400 MG TAB PO SCH ×2 (08:54→20:36)
[2016-05-13] MEDS: LEVOFLOXACIN 750 MG TAB PO SCH (08:54)
[2016-05-13] MEDS: predniSONE 50 MG TAB PO SCH (08:54)
[2016-05-13] MEDS: DOXAZOSIN MESYLATE 2 MG TAB PO SCH ×2 (08:55→20:41)
[2016-05-13] MEDS: CLOPIDOGREL 75 MG TAB PO SCH (08:55)
[2016-05-13] MEDS: POLYETHYLENE GLYCOL 17 GM PKG PO SCH (08:55)
[2016-05-13] MEDS: SODIUM CHLORIDE 0.9% FLUSH 10 ML FLUSH IV FLUSH SCH ×2 (08:56→20:37)
[2016-05-13] MEDS: POTASSIUM CHLOR 20 MEQ PREMIX 100 ML IV SCH ×4 (09:00→16:49)
[2016-05-13] MEDS: ACETAMINOPHEN/HYDROcodone 325 MG/7.5 MG TAB PO PRN ×2 (09:19→18:02)
[2016-05-13] MEDS: FUROSEMIDE 20 MG/2 ML VIAL IV PUSH SCH ×2 (09:19→18:02)
[2016-05-13] MEDS: cloNIDine HCL 0.1 MG TAB PO SCH ×3 (11:01→16:50)
[2016-05-13] MEDS: CARVEDILOL 6.25 MG TAB PO SCH ×2 (11:01→20:36)
[2016-05-13] MEDS: LOSARTAN 50 MG TAB PO SCH ×2 (11:01→20:41)
[2016-05-13] MEDS: MORPHINE SULFATE 4 MG/ML INJ IV PUSH PRN ×2 (11:01→20:53)
[2016-05-13 11:10] LABS: MAGNESIUM 2.1 MG/DL (1.5-2.5)
[2016-05-13 11:23] LABS: POTASSIUM 2.8 MEQ/L (3.5-5.1)
--- NOTE | 2016-05-13 13:09 | HHI.GIFU ---
Subjective Remarks Resting in bed. No n/v. No abdominal pain. No bleeding. (Lauren Maretl) Objective Vitals I&O Vital Signs Date Time Temp Pulse Resp B/P Pulse Ox O2 Delivery O2 Flow Rate FiO2 05/13/16 07:55 94 Nasal Cannula 3.00 05/13/16 06:00 99 05/13/16 05:30 96 Simple Mask 6.00 05/13/16 04:36 99 05/13/16 04:00 97 05/13/16 04:00 97.8 90 25 110/60 91 05/13/16 04:00 99 Bi-Pap 50 05/13/16 02:00 91 05/13/16 01:35 95 50 05/13/16 00:00 95 Bi-Pap 50 05/13/16 00:00 92 5 104/60 99 05/13/16 00:00 83 05/12/16 22:37 97 50 05/12/16 22:00 100 05/12/16 20:40 95 50 05/12/16 20:30 93 Bi-Pap 50 05/12/16 20:00 98.1 103 18 104/80 94 05/12/16 20:00 111 05/12/16 20:00 92 Simple Mask 6.00 05/12/16 19:47 94 Simple Mask 6.00 05/12/16 18:00 112 05/12/16 16:00 93 Simple Mask 6.00 05/12/16 16:00 98.6 113 18 105/72 98 05/12/16 16:00 113 05/12/16 15:10 98.6 118 20 122/78 98 Manual Cuff/Palpation I/O 05/12/16 05/12/16 05/12/16 05/13/16 05/13/16 05/13/16 07:00 15:00 23:00 07:00 15:00 23:00 Intake Total 100 ml 213 ml 162 ml Output Total 250 ml 600 ml 230 ml Balance -150 ml -387 ml -68 ml Intake Oral 100 ml 50 ml 50 ml IV Total 163 ml 112 ml Output Urine Total 600 ml 230 ml Emesis 250 ml 0 ml 0 ml # Voids 5 # Bowel Movements 5 0 0 Laboratory Laboratory Tests Test 05/12/16 05/13/16 05/13/16 19:30 04:51 04:57 Nasal Screen MRSA (PCR) NEGATIVE Sodium Level 145 Potassium Level 2.8 Chloride Level 105 Carbon Dioxide Level 29.8 Anion Gap 10 Blood Urea Nitrogen 10 Creatinine 1.15 Estimat Glomerular Filtration 64 Rate Random Glucose 127 Calcium Level 8.7 Magnesium Level 2.1 White Blood Count 15.4 Red Blood Count 3.77 Hemoglobin 10.3 Hematocrit 31.3 Mean Corpuscular Volume 83.1 Mean Corpuscular Hemoglobin 27.3 Mean Corpuscular Hemoglobin 32.8 Concent Red Cell Distribution Width 17.3 Platelet Count 222 Mean Platelet Volume 8.9 Neutrophils (%) (Auto) 84.6 Lymphocytes (%) (Auto) 7.5 Monocytes (%) (Auto) 7.4 Eosinophils (%) (Auto) 0.4 Basophils (%) (Auto) 0.1 Neutrophils # (Auto) 13.1 Lymphocytes # (Auto) 1.2 Monocytes # (Auto) 1.1 Eosinophils # (Auto) 0.1 Basophils # (Auto) 0.0 CBC Comment DIFF FINAL Differential Comment Imaging Last Impressions Chest X-Ray 05/13/16 0800 Signed Impressions: Service Date/Time: May 07:56 - CONCLUSION: Marked decrease in the left lower lung consolidation. Rick Avendaño MD Head CT 05/10/16 0000 Signed Impressions: Service Date/Time: Tuesday, May 10, 2016 17:44 - CONCLUSION: Unremarkable study. Colt Pedersen MD Abdomen/Pelvis CT 05/10/16 0000 Signed Impressions: Service Date/Time: Tuesday, May 10, 2016 17:47 - CONCLUSION: 1. Right adrenal nodule most likely an adenoma. 2. Lipoma in the inner thigh on the right. Colt Pedersen MD Physical Exam HEENT: Normocephalic; atraumatic; no jaundice. CHEST: CTA CARDIAC: RRR ABDOMEN: Soft, nondistended, nontender; no hepatosplenomegaly; bowel sounds are present in all four quadrants. EXTREMITIES: No clubbing, cyanosis, or edema. SKIN: Normal; no rash; no jaundice. BILLIARD TABLE REPAIRER: No focal deficits; alert and oriented times three. (Lauren Martel) Assessment and Plan Plan ASSESSMENT: - BRBPR. Has hx of constipation. He states that the last two times he moved his bowels, he noticed a small amount of bright red blood in the toilet bowel and on the tissue when he wiped himself. He reports that his maternal grandmother had colon cancer. He has never had an EGD/Colonoscopy. He is on Plavix and ASA at home. The patient originally wanted to proceed with EGD/Colonoscopy during this hospitalization and this was scheduled, but he developed some pulmonary edema/resp. insuff and therefore this was cancelled. - Nausea. Intermittent x 1 month. IMPROVED. - Dysphagia, intermittent dysphagia-mainly with solids, but also sometimes liquids and that that solid foods seem to get caught in his mid esophagus. He denies any heartburn. PPI. Tolerating diet. - Decreased appetite, abnormal weight loss. Reports decreased appetite with 25 lbs weight loss over past month. - Anemia. 10.3/31.3 - CRYSTAL. Creat 1.15 . - Syncopal episode with hx of CAD with hx of angioplasty and bare metal stents. He recently underwent a nuclear stress test that showed significant inferolateral ischemia and was scheduled to have a cardiac catheterization with Dr. Pedroza today. This is now scheduled to be done as inpatient. He does have a hx of chronic constipation and he reports Of note, cardiology is following and he is scheduled to have a cardiac catheterization this afternoon. PLAN: - CHAPIN - Cont. PPI - Cont. Miralax - Monitor HH - Supportive care - EGD +/- Dilatation with Colonoscopy as outpatient once Plavix has been held prior to the procedure - GI will sign off, please reconsult as needed - Pt seen and examined by Dr. Lopez and myself and this note is written on his behalf (Lauren Martel) Physician Comments Seen and examined, Doing better. Now wants to have egd/dilation while inpt. and colonoscopy as outpt. Egd scheduled for tomorrow. Can go home tomorrow after egd if stable. (Leon Lopez MD) Lauren Martel May 13, 2016 13:09 Leon Lopez MD May 13, 2016 19:14
[2016-05-13] MEDS: CITALOPRAM HYDROBROMIDE 20 MG TAB PO SCH (20:36)
[2016-05-13] MEDS: ATORVASTATIN 40 MG TAB PO SCH (20:36)
[2016-05-13] MEDS: DONEPEZIL HCL 5 MG TAB PO SCH (20:36)
[2016-05-13] MEDS: cefTRIAXone INJ 2,000 MG in SODIUM CHLORIDE 0.9% INJ 100 ML IV SCH (20:37)
[2016-05-13] MEDS: INSULIN DETEMIR 100 UNITS/ML VIAL SQ SCH (20:43)
[2016-05-14] VITALS (15 sets, daily range): BP systolic 116–145; BP diastolic 63–83; PULSE 67–93; RESP 12–23; TEMP 97.8–98.3; O2SAT 92–96
[2016-05-14] MEDS: MORPHINE SULFATE 15 MG CONTROLLED RELEASE TAB PO SCH ×4 (00:40→23:50)
[2016-05-14] MEDS: LORazepam 2 MG/ML VIAL IV PUSH PRN ×2 (00:41→23:50)
[2016-05-14] MEDS: SODIUM CHLORIDE 0.9% FLUSH 10 ML FLUSH IV FLUSH PRN (00:41)
[2016-05-14] MEDS: PANTOPRAZOLE SODIUM 40 MG VIAL IV PUSH SCH (00:41)
[2016-05-14] MEDS: CHLORHEXIDINE GLUCONATE 2 % 1 PACK (2 CLOTHS)(taper/protocol) TOPICAL SCH (04:00)
[2016-05-14] MEDS: POTASSIUM CHLORIDE 10 MEQ CONTROLLED RELEASE TAB PO SCH ×3 (05:34→23:50)
[2016-05-14] MEDS: GABAPENTIN 400 MG CAP PO SCH ×2 (05:34→16:27)
[2016-05-14] MEDS: INSULIN ASPART SUPPLEMENTAL SCALE SQ SCH ×4 (05:35→20:25)
[2016-05-14] MEDS: RESP: ALBUTEROL 2.5 MG/IPRATROPIUM 0.5 MG NEB (SCH) NEB ×3 (08:01→20:40)
[2016-05-14] MEDS: POLYETHYLENE GLYCOL 17 GM PKG PO SCH (08:45)
[2016-05-14] MEDS: MAGNESIUM OXIDE 400 MG TAB PO SCH ×2 (08:58→20:22)
[2016-05-14] MEDS: CLOPIDOGREL 75 MG TAB PO SCH (08:58)
[2016-05-14] MEDS: ASPIRIN EC 325 MG TABEC PO SCH (08:59)
[2016-05-14] MEDS: CARVEDILOL 6.25 MG TAB PO SCH ×2 (08:59→20:23)
[2016-05-14] MEDS: FUROSEMIDE 20 MG/2 ML VIAL IV PUSH SCH ×2 (08:59→16:28)
[2016-05-14] MEDS: SPIRONOLACTONE 25 MG TAB PO SCH (08:59)
[2016-05-14] MEDS: predniSONE 50 MG TAB PO SCH (08:59)
[2016-05-14] MEDS: SODIUM CHLORIDE 0.9% FLUSH 10 ML FLUSH IV FLUSH SCH ×2 (08:59→20:22)
[2016-05-14] MEDS: LEVOFLOXACIN 750 MG TAB PO SCH (08:59)
[2016-05-14] MEDS: DOXAZOSIN MESYLATE 2 MG TAB PO SCH ×2 (09:00→20:31)
[2016-05-14] MEDS: LOSARTAN 50 MG TAB PO SCH ×2 (09:00→20:31)
[2016-05-14] MEDS: cloNIDine HCL 0.1 MG TAB PO SCH ×3 (09:00→16:28)
[2016-05-14] MEDS ORDERED: LEVA750T PO (11:21)
[2016-05-14] MEDS ORDERED: LEVEMIR SQ (11:21)
[2016-05-14] MEDS ORDERED: POTA-243 PO (11:21)
[2016-05-14] MEDS ORDERED: SPIR25TA PO (11:21)
[2016-05-14] MEDS ORDERED: ASPI81TA11 PO (11:21)
[2016-05-14] MEDS ORDERED: PRED50 PO (11:21)
[2016-05-14] MEDS ORDERED: NOVOLOGP2 SQ (11:21)
[2016-05-14] MEDS ORDERED: TORS10TA2 PO (11:21)
[2016-05-14] MEDS ORDERED: LOSA25TA PO (11:23)
--- NOTE | 2016-05-14 11:59 | PQ ---
Physician Query Response Document PATIENT: Travon BUI : 1950 ADMIT DATE: 05/10/2016 11:48 PM DISCH DATE: RESPONDING PROVIDER #: [email or web address] QUERY TEXT: Present On Admission It is unclear whether the diagnoses - SEPSIS DUE TO PNEUMONIA - was present on admission. Your help is needed. Please clarify the POA status Such as: SEPSIS AND PNEUMONIA WERE: -- Present on admission -- Not present on admission / Developed after admission The patient's Clinical Indicators include: 05/10/16 Admission Diagnosis syncope, hypotension Diagnoses: (1) Syncope and collapse (2) Anemia (3) Hypomagnesemia (4) Diabetes mellitus, type 2 (5) Renal insufficiency INPATIENT H PHYSICAL EXAM REFLECTS - RESPIRATORY: Clear to auscultation. Breath sounds equal bilaterally. No whee zes, rales, or rhonchi. PER 05/12/16 PROGRESS NOTE - Mr. Bui went into acute respiratory failure with hypoxia this afternoon. I went to evaluate patien kris for 1 PM and found patient in [id number] respiratory distress. He was on nonrebreather mask. On physical exam patient was tachycardic and diffuse coarse lung sounds, rhonchi. A stat chest x-r ay, reviewed by me shows bilateral pulmonary edema left worse than right. Of note chest x-ray from did not show any acute findings. Probable pneumonia - CBC indicates leukocytosis, CXR indicates left sided consolidation. - Will start patient on Levaquin 750mg PO Qday X 5 days. - Also start patient on Prednisone 50mg Qday X 5 days. - DuoNeb scheduled and PRN. Sepsis due to pneumonia (WBC > 12K, Heart rate > 90, suspected infection - pneumonia). Query created by: Juanita Hugo on 05/13/2016 10:07 AM RESPONSE TEXT: Sepsis with probable pneumonia - not present on admission. Developed after admission. Electronically signed by: Black Engel DO 05/14/2016 11:55 AM
[2016-05-14] MEDS: ACETAMINOPHEN/HYDROcodone 325 MG/7.5 MG TAB PO PRN (12:14)
[2016-05-14] MEDS ORDERED: PROPOFOL 200 MG/20 ML AMP IV ONE ×2 (13:52)
--- NOTE | 2016-05-14 13:56 | HHI.DS ---
Discharge Summary Admission Date May 10, 2016 at 11:48 pm Discharge Date: May 15, 2016 Admitting Diagnosis syncope, hypotension (1) Syncope and collapse ICD Code: R55 Diagnosis: Principal (2) Anemia ICD Code: D64.9 (3) Hypomagnesemia ICD Code: E83.42 (4) Diabetes mellitus, type 2 ICD Code: E11.9 (5) Renal insufficiency ICD Code: N28.9 (6) Acute respiratory failure with hypoxia ICD Code: J96.01 Diagnosis: Principal (7) Pneumonia ICD Code: J18.9 Diagnosis: Principal Procedures Echocardiogram 05/11/2016 The cavity size was normal. Wall thickness was normal. Systolic function was normal. The estimated ejection fraction was in the range of 55% to 60%. Wall motion was normal; there were no regional wall motion abnormalities. 05/11/2016 Cardiac cath. CONCLUSIONS 1. Widely patent stents in the proximal and mid LAD, mid left circumflex, proximal right coronary artery. Brief History - From Admission Late entry on 05/11/2016 at 0002 for a visit done on 05/10/2016 at 2347. Mr. Bui is a 65 year-old male with a history of CAD with angioplasty and coronary stents, IL, morbid obesity, anxiety, depression, peptic ulcer disease, CVA, AGUSTIN, diabetes mellitus, hypertension, nephrolithiasis, dyslipidemia, osteoarthritis, chronic low back pain, insomnia, and mild memory impairment who underwent a recent nuclear stress test showing significant inferolateral ischemia and came to the hospital for evaluation after a syncopal episode at the [place] clinic 05/10/2016. He is scheduled to have outpatient cardiac catheterization by Dr. Pedroza tomorrow, 05/11/2016. Labs show acute renal insufficiency, anemia, and hypomagnesemia. Chest x-ray shows pulmonary parenchyma is clear with stable exam compared to previous. Abdomen pelvis CT shows right adrenal nodule likely an adenoma and lipoma in the inner right thigh. Head CT is an unremarkable study. The patient is seen in the CDU. He states that he is been feeling lightheaded for about one month. He states that he was feeling little bit better on 4/3/ 2017, showered, and went to the pain management doctor's office. While he was there, he felt dizzy, became weak, and nearly passed out. The staff at the pain management office had to hold him up at the bookkeeper receptionist desk while they awaited EMS. Denies any associated chest pain, chest tightness, shortness of breath, or nausea with this episode. He had an episode last week where he was walking through the kitchen and woke up on the floor and has no recollection on how he got there. He did not seek medical care for this. He also reports that he has been having nausea and vomiting over the last month - 2 or [facility] 2 sit in the parking lot for one hour because of multiple episodes of vomiting- emesis is bilious in color; no black or red vomitus; symptoms resolved spontaneously - states he's vomited several times over the last 30 days; feels like his food gets stuck in epigastric area and this is followed by vomiting; he also reports bright red blood in stool - most recently on Tuesday - he noted blood in toilet bowl and on feces - has history of chronic constipation - has never had a colonoscopy; has a family history of colon cancer in his grandmother. Reports recent poor appetite; he is due to have gastric sleeve surgery with Dr. Lake so he has been trying to reduce dietary intake in preparation for surgery. He continues to take Levemir 40 units at bedtime despite changes in dietary intake and reports he was instructed to take Humalog 10 units subcutaneous as needed for blood sugars greater than 160. We will have the coke loader meet with him. He also reports vision is changing when lying down - has cataracts - sees two dots/floating in front of eyes - relates it to diabetes - has to go see rehab aid - needs to follow up as an outpatient; is aware. He states he was in ICU at [facility] for CHF on January 22 through February 16. He reports he gained 42 pounds in 6 weeks. He denies being on a ventilator or BiPAP. He states that May 04 is the last time he saw Dr. Pedroza. During examination is noted that his right leg has swelling more than his left left - he states ultrasound at [facility] was negative for DVT. He denies diarrhea, pain or burning with urination but reports decreased urinary output; denies history of renal problems. He reports a history of prostate CA approximately 15 years ago - treated in [place] - radiation seeds placed Denies thyroid problems. . CBC/BMP: 05/13/16 0457 05/13/16 2264 Significant Findings Laboratory Tests Test 05/11/16 05/12/16 05/12/16 05/13/16 19:06 01:16 06:13 04:51 Hemoglobin 10.5 GM/DL 11.4 GM/DL (13.0-17.0) (13.0-17.0) Hematocrit 30.8 % 34.9 % (39.0-51.0) (39.0-51.0) Blood Gas Base Excess -2.9 mmol/L (-2-2) Blood Gas Oxygen Saturation 83 % (90-100) Arterial Blood pH 7.33 (7.380-7.420) Arterial Blood Partial 43 mmHg (38-42) Pressure CO2 Arterial Blood Partial 59 mmHg Pressure O2 (61-120) Blood Gas Hemoglobin 10.4 G/DL (12.0-16.0) White Blood Count 15.6 TH/MM3 (4.0-11.0) Red Blood Count 4.20 MIL/MM3 (4.50-5.90) Red Cell Distribution Width 17.3 % (11.6-17.2) Neutrophils (%) (Auto) 90.0 % (16.0-70.0) Lymphocytes (%) (Auto) 6.4 % (9.0-44.0) Neutrophils # (Auto) 14.0 TH/MM3 (1.8-7.7) Potassium Level 2.8 MEQ/L 2.8 MEQ/L (3.5-5.1) (3.5-5.1) Anion Gap 16 MEQ/L (5-15) Estimat Glomerular Filtration 76 ML/MIN (>89) 64 ML/MIN (>89) Rate Random Glucose 178 MG/DL 127 MG/DL (74-106) (74-106) Magnesium Level 1.4 MG/DL (1.5-2.5) Test 05/13/16 04:57 White Blood Count 15.4 TH/MM3 (4.0-11.0) Red Blood Count 3.77 MIL/MM3 (4.50-5.90) Hemoglobin 10.3 GM/DL (13.0-17.0) Hematocrit 31.3 % (39.0-51.0) Red Cell Distribution Width 17.3 % (11.6-17.2) Neutrophils (%) (Auto) 84.6 % (16.0-70.0) Lymphocytes (%) (Auto) 7.5 % (9.0-44.0) Neutrophils # (Auto) 13.1 TH/MM3 (1.8-7.7) Monocytes # (Auto) 1.1 TH/MM3 (0-0.9) Imaging Last Impressions Chest X-Ray 05/13/16 0800 Signed Impressions: Service Date/Time: May 07:56 - CONCLUSION: Marked decrease in the left lower lung consolidation. Rick Avendaño MD Head CT 05/10/16 0000 Signed Impressions: Service Date/Time: Tuesday, May 10, 2016 17:44 - CONCLUSION: Unremarkable study. Colt Pedersen MD Abdomen/Pelvis CT 05/10/16 0000 Signed Impressions: Service Date/Time: Tuesday, May 10, 2016 17:47 - CONCLUSION: 1. Right adrenal nodule most likely an adenoma. 2. Lipoma in the inner thigh on the right. Colt Pedersen MD PE at Discharge GENERAL: Alert, oriented 3, in acute respiratory distress. SKIN: Warm and dry. HEAD: Normocephalic. EYES: No scleral icterus. No injection or drainage. NECK: Supple, trachea midline. No JVD or lymphadenopathy. CARDIOVASCULAR: Regular rate and rhythm without murmurs, gallops, or rubs. RESPIRATORY: Moderate air movement. Scattered rhonchi. No significant wheezing appreciated. GASTROINTESTINAL: Abdomen soft, non-tender, nondistended. MUSCULOSKELETAL: No cyanosis, or edema. BACK: Nontender without obvious deformity. No CVA tenderness. Pt update on day of discharge This note is for 05/15/2016. Patient is doing well. No acute concerns. Doing well on 3L of O2 via NC. Discussed with Dr. Perry (Patient's outpatient river pilot) who recommended following up with him next week regarding CPAP. Hospital Course Mr. Bui is a 65 year-old male with a history of CAD with stents, IL, morbid obesity, anxiety, depression, peptic ulcer disease, CVA, AGUSTIN, DM, HTN, nephrolithiasis, dyslipidemia, osteoarthritis, chronic low back pain, insomnia, and mild memory impairment who underwent a recent outpatient nuclear stress test showing significant inferolateral ischemia and came to the hospital for evaluation after a syncopal episode at the [place] clinic 05/10/2016. He underwent cardiac catheterization by Dr. Pedroza, 05/11/2016 which showed widely patent stents in the proximal and mid LAD, mid left circumflex, proximal right RCA. During this admission patient also complained of bright red blood per rectum. GI was consulted and recommended EGD colonoscopy. Patient is currently on Plavix and aspirin. However after discussing with patient and GI, patient was kept in the hospital for possible EGD colonoscopy on 05/12/2016. - Acute respiratory failure hypoxemic. - Much improved. Continue diuretics on discharge. - Wean off O2 requirements to keep O2 sat > 90%. - Repeat CXR shows marked improvement. - Walk test indicate need for home O2. We will arrange Home O2. - Increase O2 at night since patient's O2 sat goes down when he goes to sleep. Discussed with his outpatient river pilot. - Patient needs to follow up with Dr. Perry regarding CPAP. He had a sleep study done about 4 years ago. - Probable pneumonia - CBC indicates leukocytosis, CXR indicates left sided consolidation. - Continue Levaquin 750mg PO Qday and Ceftriaxon in the hospital. - Continue patient on Prednisone 50mg Qday X 5 days. - DuoNeb scheduled and PRN. - Hypomagnesemia - Hypokalemia - Mg and K+ corrected. - IV KCL 40 meq given. However, patient complains of burning sensation. - Mg replaced by IV. We will continue oral KCL. - Syncope - Etiology is not clear. Orthostatics were not significant. Cardiac cath unremarkable for any acute findings. - CAD - continue aspirin 325mg, plavix 75 mg, Carvedilol 6.25mg Q12hrs, Losartan 100mg Q12hrs. - Hypertension - continue amlodipine 10 mg daily, losartan 100 mg every 12 hours , carvedilol 6.25 mg every 12 hours. Probable GI bleed - Hemoglobin 9.9 and hematocrit 29.2 - most recent labs from 2016 but this appears to be lower than prior trends - GI is following. EGD was done today. GI recommends Gastric Emptying study which we will order on discharge to be done outpatient. - Type 2 diabetes mellitus - Continue Sliding scale insulin. - Will start patient on Levemir 5 units QHS. May need to increase insulin dosage while on prednisone. - Acute renal insufficiency - Creatinine Improved from 1.76 --> 0.99. All question answered. I went over medication changes with patient. He is instructed to follow up with Dr. Perry this coming week. Pt Condition on Discharge: Good Discharge Disposition: Discharge Home Discharge Time: > 30 minutes Discharge Instructions Follow up Referrals: PCP Follow-up - 1 Week Pulmonology - 3-5 Days New Orders: NM GASTRIC EMPTYING - 1 Week New Medications: Aspirin DR (Aspirin EC) 81 Mg Tabdr 81 MG PO DAILY Blood Clot Prevention #90 Ref 0 TAB Insulin Aspart Inj (Novolog Inj) 1,000 Unit/10 Ml Vial 1-9 UNITS SQ ACHS Max dose at bedtime:( )units; sugars less than 70,(0)units; sugars 150-199,(1) unit; sugars 200-249,(3) units; sugars 250-299,(5) units; sugars 300-349,(7) units; sugars greater than 349,(9) units Blood Sugar Management #10 Ref 0 ML Levofloxacin (Levaquin) 750 Mg Tab 750 MG PO DAILY Infection #4 Ref 0 TAB Losartan (Losartan) 25 Mg Tab 25 MG PO DAILY Blood Pressure Management #30 Ref 0 TAB Oxygen tank (Oxygen tank) 1 Ea Tank 2 LITER NIKITA.CANULA CONTINUOUS Oxygen Concentrator Portable Gaseous 2 L/min via Nasal Cannula Continuous For 99 months HYPOXEMIA PREVENTION #1 CYLINDER Prednisone (Prednisone) 50 Mg Tab 50 MG PO DAILY Inflammation #3 Ref 0 TAB Torsemide (Torsemide) 10 Mg Tab 10 MG PO BID Heart #60 Ref 0 TAB Potassium Chloride ER (Klor-Con 10) 10 Meq Tab 10 MEQ PO BID potassium #60 TAB Changed Medications: Insulin Detemir Inj (Levemir Inj) 1,000 unit/ 10 ML Vial 5 UNITS SQ HS Do not mix with any other Insulin. Blood Sugar Management Days 30 Ref 0 VIAL (Changed from: 40 UNITS) Continued Medications: Alprazolam (Alprazolam) 0.5 Mg Tab 0.5 MG PO BID PRN ANXIETY Ref 0 TAB Atorvastatin (Atorvastatin) 40 Mg Tab 40 MG PO HS Cholesterol Management #30 Ref 0 TAB Carvedilol (Coreg) 6.25 Mg Tab 6.25 MG PO BID #60 Ref 0 TAB Citalopram (Citalopram) 20 Mg Tab 20 MG PO HS Control Depression #30 Ref 0 TAB Clopidogrel (Plavix) 75 Mg Tab 75 MG PO HS Blood Clot Prevention #30 Ref 0 TAB Diclofenac Topical (Voltaren Topical) 1% Gel 1 APPLIC TOPICAL DAILY PRN KNEE PAIN #100 Ref 0 GM Donepezil (Donepezil) 5 Mg Tab 5 MG PO HS Dementia #30 Ref 0 TAB Doxazosin (Doxazosin) 2 Mg Tab 2 MG PO HS #30 Ref 0 TAB Fluticasone Nasal [place] (Flonase Nasal [place]) 50 Mcg/Act [place] 1 SPRAY EACH NARE BID PRN ALLERGIES #1 Ref 0 BOTTLE Gabapentin (Gabapentin) 800 Mg Tab 800 MG PO TID #90 Ref 0 TAB Hydrocodone-Acetaminophen ([place]) 10-325 Mg Tab 1 TAB PO QID PRN PAIN Ref 0 TAB Metformin (Metformin) 1,000 Mg Tab 1000 MG PO BIDPC With meals Blood Sugar Management #60 Ref 0 TAB Morphine ER (Ms Contin) 30 Mg Tab 30 MG PO Q8H Pain Management Ref 0 TAB Nitroglycerin SL (Nitroglycerin SL) 0.4 Mg Subl 0.4 MG SL DIRECTED ONE TABLET UNDER THE TONGUE NEEDED FOR CHEST PAIN, MAY REPEAT EVERY FIVE MINUTES FOR A TOTAL OF 3 DOSES OR CALL 911 IF NO RELIEF PRN CHEST PAIN #100 Ref 0 TAB.SL Omeprazole (Omeprazole) 40 Mg Cap 40 MG PO HS #30 Ref 0 CAP Temazepam (Restoril) 30 Mg Cap 30 MG PO HS PRN INSOMNIA #30 Ref 0 CAP Discontinued Medications: Amlodipine (Amlodipine) 10 Mg Tab 10 MG PO HS Blood Pressure Management #30 Ref 0 TAB Modwjqo-Iugsabzcvmng-Xeyysqtn Powder (Bc Fast Pain Relief Powder) 650-195-33.3 Mg Powderpack 1 PKT PO DAILY Bumetanide (Bumex) 2 Mg Tab 2 MG PO BID Ref 0 TAB Clonidine (Clonidine) 0.1 Mg Tab 0.1 MG PO TID Blood Pressure Management #60 Ref 0 TAB Furosemide (Lasix) 40 Mg Tab 40 MG PO AC LUNCH #30 Ref 0 TAB Furosemide (Lasix) 80 Mg Tab 80 MG PO AC BREAKFAST #30 Ref 0 TAB Glipizide ER (Glipizide ER) 5 Mg Beth 5 MG PO AC DINNER Take with breakfast or first main meal of the day. Blood Sugar Management #30 Ref 0 TAB Insulin Lispro (Human) Inj (Humalog Inj) 1,000 Unit/10 Ml Vial 10 UNITS SQ ACHS PRN BLOOD SUGAR OVER 160 #1 Ref 0 VIAL Losartan (Losartan) 100 Mg Tab 100 MG PO HS Blood Pressure Management #30 Ref 0 TAB Potassium Chloride Microencaps (Potassium Chloride Microencaps) 10 Meq Tab 10 MEQ PO TID TAB Johny Engel DO May 14, 2016 13:56
[2016-05-14] MEDS ORDERED: OXYGENTANK NAS.CANULA (13:57)
--- NOTE | 2016-05-14 13:59 | GIPROC ---
[facility] [address] [facility]. [facility] [place], [id number] EGD PROCEDURE REPORT EXAM DATE: 05/14/2016 PATIENT NAME: Travon Bui MR #: [id number] BIRTHDATE: 1950 ATTENDING: Leon Lopez MD ORDER #: [id number] HEALTH AND SAFETY REPRESENTATIVE: Malachi Arcos and Harjinder Jennings STATUS: inpatient INDICATIONS: The patient is a 65 yr old male here for an EGD due to iron deficiency anemia PROCEDURE PERFORMED: EGD, diagnostic MEDICATIONS: Per Anesthesia and None. TOPICAL ANESTHETIC: CONSENT: The patient understands the risks and benefits of the procedure and understands that these risks include, but are not limited to: sedation, allergic reaction, infection, perforation and/or bleeding. Alternative means of evaluation and treatment include, among others: physical exam, x-rays, and/or surgical intervention. The patient elects to proceed with this endoscopic procedure. medical equipment was checked for proper function. Hand hygiene and appropriate measures for infection prevention was taken. After the risks, benefits and alternatives of the procedure were thoroughly explained, Informed consent was verified, confirmed and timeout was successfully executed by the treatment team. The patient was anesthetized with topical anesthesia and the Pentax [id number] endoscope was introduced through the mouth and advanced to the bulb of duodenum. Retroflexed views revealed no abnormalities The gastroscope was then slowly withdrawn and removed. ESOPHAGUS: The mucosa of the esophagus appeared normal. STOMACH: There was a moderate amount of residual food seen in the gastric antrum. Due to the residual food, complete mucosal examination could not be performed. Based on this, I suspect the patient has some level of gastroparesis. ADVERSE EVENTS: There were no complications. IMPRESSIONS: 1. The esophagus appeared normal 2. Food residue in the gastric antrum 3. Retroflexed views revealed no abnormalities 4. Difficult intubation. Future procedures should be done in the OR only RECOMMENDATIONS: 1. Anti-reflux regimen 2. Continue PPI 3. Xray: Gastric Emptying Scan PATIENT CONDITION: stable DISPOSITION: Inpatient REPEAT EXAM: Return 12 weeks EGD Leon Lopez MD eSigned: Leon Lopez MD 05/14/2016 1:59 PM cc:
[2016-05-14] MEDS ORDERED: DO NOT ADM ANY ANTICOAGULANT DRUGS PRN (14:17)
[2016-05-14] MEDS ORDERED: *RESP: ALBUTEROL 2.5 MG/3 ML NEB (PRN) PERIprocedural Use ONLY NEB ONE (14:23)
[2016-05-14] MEDS: cefTRIAXone INJ 2,000 MG in SODIUM CHLORIDE 0.9% INJ 100 ML IV SCH (20:21)
[2016-05-14] MEDS: DONEPEZIL HCL 5 MG TAB PO SCH (20:22)
[2016-05-14] MEDS: ATORVASTATIN 40 MG TAB PO SCH (20:22)
[2016-05-14] MEDS: CITALOPRAM HYDROBROMIDE 20 MG TAB PO SCH (20:23)
[2016-05-14] MEDS: INSULIN DETEMIR 100 UNITS/ML VIAL SQ SCH (20:25)
[2016-05-14] MEDS: MORPHINE SULFATE 4 MG/ML INJ IV PUSH PRN (20:31)
--- NOTE | 2016-05-14 23:15 | HHI.PR ---
Subjective Remarks Follow-up for syncope, CAD, acute respiratory failure. Mr. Bui is doing well. No acute concerns. Doing well on O2 via [place]. Patient underwent EGD today. Home O2 was arranged. Patient's family members did not feel that patient should be going home today. Objective Vitals Vital Signs Date Time Temp Pulse Resp B/P Pulse Ox O2 Delivery O2 Flow Rate FiO2 05/14/16 22:00 80 05/14/16 20:41 96 Nasal Cannula 3.00 05/14/16 20:00 95 Nasal Cannula 4.00 05/14/16 20:00 98.2 83 13 120/72 95 05/14/16 20:00 83 05/14/16 18:00 83 05/14/16 16:00 98.1 79 14 140/83 93 05/14/16 16:00 83 05/14/16 14:45 87 05/14/16 14:37 97.5 82 16 116/71 92 Nasal Cannula 4 05/14/16 14:30 79 16 124/83 94 Nasal Cannula 4 05/14/16 14:15 95 16 116/58 91 Nasal Cannula 4 05/14/16 14:12 98.5 83 16 126/71 96 Nasal Cannula 05/14/16 13:10 3.00 05/14/16 12:00 76 05/14/16 12:00 98.2 76 12 145/74 92 05/14/16 11:40 3.00 05/14/16 10:00 71 05/14/16 08:02 95 Nasal Cannula 3.00 05/14/16 08:00 97.8 71 14 119/70 95 05/14/16 08:00 94 Nasal Cannula 3.00 05/14/16 08:00 67 05/14/16 06:00 75 05/14/16 04:00 96 Nasal Cannula 3.00 05/14/16 04:00 72 05/14/16 04:00 98.3 74 14 116/63 96 05/14/16 03:38 94 40 05/14/16 02:00 91 05/14/16 00:00 98.3 93 23 123/70 93 05/14/16 00:00 83 05/14/16 00:00 95 Nasal Cannula 3.00 I/O 05/13/16 05/13/16 05/13/16 05/14/16 05/14/16 4/7/17 07:00 15:00 23:00 07:00 15:00 23:00 Intake Total 162 ml 745 ml 143 ml 0 ml 255 ml Output Total 230 ml 300 ml 250 ml 200 ml 560 ml Balance -68 ml 445 ml -107 ml -200 ml -305 ml Intake Oral 50 ml 400 ml 240 ml IV Total 112 ml 345 ml 143 ml 0 ml 15 ml Output Urine Total 230 ml 300 ml 250 ml 200 ml 560 ml Emesis 0 ml # Bowel Movements 0 0 0 Result Diagram: 05/13/16 0457 05/13/16 1744 Imaging Last Impressions Chest X-Ray 05/13/16 0800 Signed Impressions: Service Date/Time: May 07:56 - CONCLUSION: Marked decrease in the left lower lung consolidation. Rick Avendaño MD Head CT 05/10/16 0000 Signed Impressions: Service Date/Time: Tuesday, May 10, 2016 17:44 - CONCLUSION: Unremarkable study. Colt Pedersen MD Abdomen/Pelvis CT 05/10/16 0000 Signed Impressions: Service Date/Time: Tuesday, May 10, 2016 17:47 - CONCLUSION: 1. Right adrenal nodule most likely an adenoma. 2. Lipoma in the inner thigh on the right. Colt Pedersen MD Objective Remarks GENERAL: Alert, oriented 3, in acute respiratory distress. SKIN: Warm and dry. HEAD: Normocephalic. EYES: No scleral icterus. No injection or drainage. NECK: Supple, trachea midline. No JVD or lymphadenopathy. CARDIOVASCULAR: Regular rate and rhythm without murmurs, gallops, or rubs. RESPIRATORY: Moderate air movement. Scattered rhonchi. No significant wheezing appreciated. GASTROINTESTINAL: Abdomen soft, non-tender, nondistended. MUSCULOSKELETAL: No cyanosis, or edema. BACK: Nontender without obvious deformity. No CVA tenderness. Procedures Echocardiogram 05/11/2016 The cavity size was normal. Wall thickness was normal. Systolic function was normal. The estimated ejection fraction was in the range of 55% to 60%. Wall motion was normal; there were no regional wall motion abnormalities. A/P Problem List: (1) Syncope and collapse ICD Code: R55 Status: Acute (2) Anemia ICD Code: D64.9 Status: Acute (3) Hypomagnesemia ICD Code: E83.42 Status: Acute (4) Diabetes mellitus, type 2 ICD Code: E11.9 Status: Chronic (5) Renal insufficiency ICD Code: N28.9 Status: Acute (6) Acute respiratory failure with hypoxia ICD Code: J96.01 Status: Acute (7) Pneumonia ICD Code: J18.9 Status: Acute Assessment and Plan Mr. Bui is a 65 year-old male with a history of CAD with stents, AK, morbid obesity, anxiety, depression, peptic ulcer disease, CVA, AGUSTIN, DM, HTN, nephrolithiasis, dyslipidemia, osteoarthritis, chronic low back pain, insomnia, and mild memory impairment who underwent a recent outpatient nuclear stress test showing significant inferolateral ischemia and came to the hospital for evaluation after a syncopal episode at the [place] [facility] 05/10/2016. He underwent cardiac catheterization by Dr. Pedroza, 05/11/2016 which showed widely patent stents in the proximal and mid LAD, mid left circumflex, proximal right RCA. During this admission patient also complained of bright red blood per rectum. GI was consulted and recommended EGD colonoscopy. Patient is currently on Plavix and aspirin. However after discussing with patient and GI, patient was kept in the hospital for possible EGD colonoscopy on 05/12/2016. - Acute respiratory failure hypoxemic. - Much improved. Will continue Lasix 20mg IV BID. - Wean off O2 requirements to keep O2 sat > 90%. - Repeat CXR shows marked improvement. - Walk test indicate need for home O2. We will arrange Home O2. - Probable pneumonia - CBC indicates leukocytosis, CXR indicates left sided consolidation. - Continue Levaquin 750mg PO Qday X 5 days and Ceftriaxone. - Continue patient on Prednisone 50mg Qday X 5 days. - DuoNeb scheduled and PRN. - Hypomagnesemia - Hypokalemia - Mg and K+ corrected. - IV KCL 40 meq given. However, patient complains of burning sensation. - Mg replaced by IV. We will continue oral KCL. - Syncope - Etiology is not clear. Orthostatics were not significant. Cardiac cath unremarkable for any acute findings. - CAD - continue aspirin 325mg, plavix 75 mg, Carvedilol 6.25mg Q12hrs, Losartan 100mg Q12hrs. - Hypertension - continue amlodipine 10 mg daily, losartan 100 mg every 12 hours , carvedilol 6.25 mg every 12 hours. Probable GI bleed - Hemoglobin 9.9 and hematocrit 29.2 - most recent labs from 2016 but this appears to be lower than prior trends - GI is following. EGD was done today. GI recommends Gastric Emptying study which we will order on discharge to be done outpatient. - Type 2 diabetes mellitus - Continue Sliding scale insulin. - Will start patient on Levemir 5 units QHS. May need to increase insulin dosage while on prednisone. - Acute renal insufficiency - Creatinine Improved from 1.76 --> 0.99. Full code. SCDs. Discharge plan: Home with home health. PT recommends HHC. Problem Qualifiers (1) Anemia: Qualified Code: D64.9 - Anemia, unspecified type Johny Engel DO May 14, 2016 23:15
[2016-05-15] VITALS (9 sets, daily range): BP systolic 105–133; BP diastolic 60–70; PULSE 74–101; RESP 18–24; TEMP 98–99.8; O2SAT 93–95
[2016-05-15] MEDS: CHLORHEXIDINE GLUCONATE 2 % 1 PACK (2 CLOTHS)(taper/protocol) TOPICAL SCH (04:00)
[2016-05-15] MEDS: GABAPENTIN 400 MG CAP PO SCH ×2 (05:56→17:22)
[2016-05-15] MEDS: PANTOPRAZOLE SODIUM 40 MG VIAL IV PUSH SCH (05:56)
[2016-05-15] MEDS: POTASSIUM CHLORIDE 10 MEQ CONTROLLED RELEASE TAB PO SCH ×2 (05:56→13:05)
[2016-05-15] MEDS: INSULIN ASPART SUPPLEMENTAL SCALE SQ SCH ×3 (05:57→16:00)
[2016-05-15] MEDS: MORPHINE SULFATE 4 MG/ML INJ IV PUSH PRN (06:01)
[2016-05-15] MEDS: RESP: ALBUTEROL 2.5 MG/IPRATROPIUM 0.5 MG NEB (SCH) NEB ×2 (07:25→13:25)
[2016-05-15] MEDS: SODIUM CHLORIDE 0.9% FLUSH 10 ML FLUSH IV FLUSH SCH (09:44)
[2016-05-15] MEDS: DOXAZOSIN MESYLATE 2 MG TAB PO SCH (09:45)
[2016-05-15] MEDS: CARVEDILOL 6.25 MG TAB PO SCH (09:45)
[2016-05-15] MEDS: predniSONE 50 MG TAB PO SCH (09:45)
[2016-05-15] MEDS: FUROSEMIDE 20 MG/2 ML VIAL IV PUSH SCH ×2 (09:45→17:25)
[2016-05-15] MEDS: LEVOFLOXACIN 750 MG TAB PO SCH (09:45)
[2016-05-15] MEDS: LOSARTAN 50 MG TAB PO SCH (09:46)
[2016-05-15] MEDS: cloNIDine HCL 0.1 MG TAB PO SCH ×3 (09:46→17:20)
[2016-05-15] MEDS: CLOPIDOGREL 75 MG TAB PO SCH (09:46)
[2016-05-15] MEDS: MORPHINE SULFATE 15 MG CONTROLLED RELEASE TAB PO SCH ×2 (09:47→17:21)
[2016-05-15] MEDS: MAGNESIUM OXIDE 400 MG TAB PO SCH (09:47)
[2016-05-15] MEDS: SPIRONOLACTONE 25 MG TAB PO SCH (09:47)
[2016-05-15] MEDS: ASPIRIN EC 325 MG TABEC PO SCH (09:47)
[2016-05-15] MEDS: POLYETHYLENE GLYCOL 17 GM PKG PO SCH (09:48)
--- NOTE | 2016-05-15 12:01 | HHI.GIFU ---
Subjective Remarks Pt sitting up in bed, comfortable. He says he is ready to go home. Denies n/v , blood in stool, abd pain. He ate breakfast. Objective Vitals I&O Vital Signs Date Time Temp Pulse Resp B/P Pulse Ox O2 Delivery O2 Flow Rate FiO2 05/15/16 10:47 18 05/15/16 08:00 87 05/15/16 08:00 98.0 87 22 133/70 94 05/15/16 08:00 95 Nasal Cannula 3.00 05/15/16 07:25 95 Nasal Cannula 3.00 05/15/16 04:00 74 05/15/16 02:00 78 05/15/16 00:00 98.0 90 18 105/62 93 05/15/16 00:00 101 05/14/16 22:00 80 05/14/16 20:41 96 Nasal Cannula 3.00 05/14/16 20:00 95 Nasal Cannula 4.00 05/14/16 20:00 98.2 83 13 120/72 95 05/14/16 20:00 83 05/14/16 18:00 83 05/14/16 16:00 98.1 79 14 140/83 93 05/14/16 16:00 83 05/14/16 14:45 87 05/14/16 14:37 97.5 82 16 116/71 92 Nasal Cannula 4 05/14/16 14:30 79 16 124/83 94 Nasal Cannula 4 05/14/16 14:15 95 16 116/58 91 Nasal Cannula 4 05/14/16 14:12 98.5 83 16 126/71 96 Nasal Cannula 05/14/16 13:10 3.00 05/14/16 12:00 76 05/14/16 12:00 98.2 76 12 145/74 92 I/O 05/14/16 05/14/16 05/14/16 05/15/16 05/15/16 05/15/16 07:00 15:00 23:00 07:00 15:00 23:00 Intake Total 0 ml 255 ml 1155 ml Output Total 200 ml 560 ml 550 ml Balance -200 ml -305 ml 605 ml Intake Oral 240 ml 1055 ml IV Total 0 ml 15 ml 100 ml Output Urine Total 200 ml 560 ml 550 ml # Bowel Movements 0 0 Imaging Last Impressions Chest X-Ray 05/13/16 0800 Signed Impressions: Service Date/Time: May 07:56 - CONCLUSION: Marked decrease in the left lower lung consolidation. Rick Avendaño MD Head CT 05/10/16 0000 Signed Impressions: Service Date/Time: Tuesday, May 10, 2016 17:44 - CONCLUSION: Unremarkable study. Colt Pedersen MD Abdomen/Pelvis CT 05/10/16 0000 Signed Impressions: Service Date/Time: Tuesday, May 10, 2016 17:47 - CONCLUSION: 1. Right adrenal nodule most likely an adenoma. 2. Lipoma in the inner thigh on the right. Colt Pedersen MD Physical Exam HEENT: Normocephalic; atraumatic; no jaundice. CHEST: CTA CARDIAC: RRR ABDOMEN: Soft, obese, nontender; no hepatosplenomegaly; bowel sounds are present in all four quadrants. EXTREMITIES: No clubbing, cyanosis, or edema. SKIN: Normal; no rash; no jaundice. 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 Assessment and Plan Plan ASSESSMENT: - BRBPR. Has hx of constipation. He states that the last two times he moved his bowels, he noticed a small amount of bright red blood in the toilet bowel and on the tissue when he wiped himself. s/p EGD found food residue, poss gastroparesis, esophagus appeared normal, difficult intubation and recommendation future procedures be done in OR - Nausea. Intermittent x 1 month. IMPROVED. - Dysphagia, intermittent dysphagia-mainly with solids, but also sometimes liquids and that that solid foods seem to get caught in his mid esophagus. He denies any heartburn. PPI. Tolerating diet. - possible gastroparesis - Anemia. stable PLAN: - okay to d/c from GI standpoint - CHAPIN - Cont. PPI - Cont. Miralax - Monitor HH - Supportive care - Colonoscopy as outpatient once Plavix has been held prior to the procedure - consider scheduling GES as outpatient - GI will sign off, please reconsult as needed - Pt seen and examined by Dr. Almendarez and myself and this note is written on his behalf Wendy Chau May 15, 2016 12:01
== END 2016-05-15 18:00 | disposition home or self-care (01) | DRG 286 ==
LOC: NEPC 16:53 → NEDA 18:42 → INTOOBSV 18:42 → NEPGCP 22:44 → OBSVTOIN 23:48 → HCIS 05-11 14:00 → N04A 05-11 18:24 → HIMN 05-12 15:06
PROVIDERS: ADMIT Hospitalist; ATTEND Hospitalist
PROC: B2111ZZ Fluoroscopy of Multiple Coronary Arteries using Low Osmolar Contrast (ICD-10-PCS; principal; 2016-05-11)
PROC: 4A023N7 Measurement of Cardiac Sampling and Pressure, Left Heart, Percutaneous Approach (ICD-10-PCS; 2016-05-11)
PROC: 5A09357 Assistance with Respiratory Ventilation, Less than 24 Consecutive Hours, Continuous Positive Airway Pressure (ICD-10-PCS; 2016-05-12)
PROC: 0DJ08ZZ Inspection of Upper Intestinal Tract, Via Natural or Artificial Opening Endoscopic (ICD-10-PCS; 2016-05-14)
DX: I95.9 Hypotension, unspecified (principal); J96.01 Acute respiratory failure with hypoxia; A41.9 Sepsis, unspecified organism; J18.9 Pneumonia, unspecified organism; I11.0 Hypertensive heart disease with heart failure; E11.649 Type 2 diabetes mellitus with hypoglycemia without coma; K92.2 Gastrointestinal hemorrhage, unspecified; Z68.41 Body mass index [BMI] 40.0-44.9, adult; E83.42 Hypomagnesemia; E86.0 Dehydration; D64.9 Anemia, unspecified; K31.84 Gastroparesis; I25.10 Atherosclerotic heart disease of native coronary artery without angina pectoris; R13.10 Dysphagia, unspecified; R55 Syncope and collapse; E66.01 Morbid (severe) obesity due to excess calories; N28.9 Disorder of kidney and ureter, unspecified; G47.33 Obstructive sleep apnea (adult) (pediatric); E78.5 Hyperlipidemia, unspecified; G25.3 Myoclonus; M48.06 Spinal stenosis, lumbar region; R63.4 Abnormal weight loss; R11.2 Nausea with vomiting, unspecified; E87.6 Hypokalemia; I25.118 Atherosclerotic heart disease of native coronary artery with other forms of angina pectoris; Z79.02 Long term (current) use of antithrombotics/antiplatelets; I25.2 Old myocardial infarction; F32.9 Major depressive disorder, single episode, unspecified; F41.9 Anxiety disorder, unspecified; E78.00 Pure hypercholesterolemia, unspecified; M54.5 Low back pain; G89.29 Other chronic pain; G47.00 Insomnia, unspecified; M19.90 Unspecified osteoarthritis, unspecified site; Z86.73 Personal history of transient ischemic attack (TIA), and cerebral infarction without residual deficits; Z85.46 Personal history of malignant neoplasm of prostate; Z87.11 Personal history of peptic ulcer disease; Z95.5 Presence of coronary angioplasty implant and graft; Z79.4 Long term (current) use of insulin; Z87.442 Personal history of urinary calculi
CPT/HCPCS: 36600; 70450; 71010; 74176; 80048; 80061; 81001; 82550; 82805; 82948; 83735; 84132; 84484; 85014; 85018; 85025; 85610; 85730; 87641; 93005; 93306; 93454; 94002; 94003; 94620; 94640; 94664; 96360; C1760; C1769; C1893; C9113; G0269; J0696; J1644; J1815; J1940; J2060; J2250; J2270; J2405; J3410; J3475; J3480; J7030; J7040; J7512; J7613; Q0163; Q9967

== ENCOUNTER → 2016-10-04 | Day surgery (SDC) | payer OTHER ==
[~2016-10-04] MED LIST changes: -1-ME1LIQ PO; -ASPI1POW PO; +ASPI81TA11 PO; -ATOR40TA PO; +ATOR40TA16 PO; +CARV6.25 PO; -CLON.1 PO; +DICL1GEL TOPICAL; +DONE5TAB7 PO; +DOXA1TAB35 PO; -DOXA1TAB65 PO; +FLUT1SPR5 EACH NARE; -FLUT50SP EACH NARE; +GABA800T PO; -GLIP1TAB18 PO; -GLUC1000 PO; -HYDR-3129 PO; +HYDR-3366 PO; +LEVA750T PO; -LOSA100T PO; +LOSA25TA PO; -MAGN400 PO; -MEDR4PAK3 PO; +METF1000 PO; -MORP30SU PO; +MS C30TA PO; -NEUR800T PO; -NITR0.4S SL; +NITR1SUB3 SL; +NOVOLOGP2 SQ; +OMEP40CA2 PO; +OXYGENTANK NAS.CANULA; -PLAV75TA PO; +PLAV75TA29 PO; +POTA-243 PO; -POTA10IN2 PO; +PRED50 PO; -PRIL40CA PO; +PROPOFOL 200 MG/20 ML AMP IV ONE; +REST30CA PO; -TEMA15 PO; +TORS10TA2 PO
--- NOTE | 2016-10-04 13:39 | GIPROC ---
[facility] [address] [place], [address] COLONOSCOPY PROCEDURE REPORT EXAM DATE: 10/04/2016 PATIENT NAME: Travon Bui MR #: [id number] BIRTHDATE: 1950 ENDOSCOPIST: Tom Peacock MD ORDER #: [id number] DIETIST: Harjinder Jennings RN STATUS: outpatient INDICATIONS: The patient is a 66 yr old male here for a colonoscopy due to rectal bleeding PROCEDURE PERFORMED: Colonoscopy, diagnostic MEDICATIONS: None and Per Anesthesia. PREP QUALITY: fair ESTIMATED BLOOD LOSS: None CONSENT: The patient understands the risks and benefits of the procedure and understands that these risks include, but are not limited to: sedation, allergic reaction, infection, perforation and/or bleeding. Alternative means of evaluation and treatment include, among others: physical exam, x-rays, and/or surgical intervention. The patient elects to proceed with this endoscopic procedure. medical equipment was checked for proper function. Hand hygiene and appropriate measures for infection prevention was taken. After the risks, benefits and alternatives of the procedure were thoroughly explained, Informed consent was verified, confirmed and timeout was successfully executed by the treatment team. A digital exam revealed no abnormalities of the rectum The [id number] ([id number]) endoscope was introduced through the anus and advanced to the cecum, which was identified by both the appendix and ileocecal valve. The instrument was then slowly withdrawn as the colon was fully examined. COLON FINDINGS: Mild diverticulosis was noted in the sigmoid colon. The colon mucosa was otherwise normal. Retroflexed views revealed no abnormalities The scope was then completely withdrawn from the patient and the procedure terminated. PROCEDURE WITHDRAWAL TIME:14.5minutes ADVERSE EVENTS: There were no complications. IMPRESSIONS: 1. Mild diverticulosis was noted in the sigmoid colon 2. The colon mucosa was otherwise normal 3. Retroflexed views revealed no abnormalities 4. Revealed no abnormalities of the rectum RECOMMENDATIONS: 1. High fiber diet 2. Yearly hemoccult 3. Follow-up: GI Clinic 4 week(s) RECALL: Return 5 years Colonoscopy Tom Peacock MD eSigned: Tom Peacock MD 10/04/2016 1:38 PM cc: Wali Pinon M.D and Mechelle Boothe [facility]
== END | disposition home or self-care (01) ==
LOC: ESDC 11:00
PROVIDERS: ATTEND Internal Medicine Gastroenterology
DX: K62.5 Hemorrhage of anus and rectum (principal); K57.90 Diverticulosis of intestine, part unspecified, without perforation or abscess without bleeding; E11.9 Type 2 diabetes mellitus without complications; Z79.4 Long term (current) use of insulin
CPT/HCPCS: 00810; 45378; 82948; 88305; J3010